=== PATIENT | female | born 1945 | race African-American/Black ===

== ENCOUNTER 2017-04-14 13:46 | Inpatient (IN) | payer OTHER, MEDICARE ==
[~2017-04-14] VITALS: Ht 167.6 cm; Wt 128.5 kg
[~2017-04-14 13:46] MED LIST: ALLO100T PO; BETH25 PO; BUME1TAB PO; COUM2TAB PO; GLIP5TAB8 PO; RANI150T PO; TOPR100T PO; ZITH250T PO; ZOCO40TA PO
[2017-04-14 13:51] VITALS: BP 170/72; PULSE 45; RESP 20; TEMP 97.4; O2SAT 98
--- NOTE | 2017-04-14 14:03 | PD ---
Physical Exam Time Seen by Provider: 14:01 Narrative 71[address] sent by Dr[address] Cantrell for pleural effusion seen on chest x-ray, SOB, chest congestion, severe bradycardia. Symptoms for a few days. Steven chest pain. Hx of afib. Patient seen in triage. VS reviewed. Patient awaiting bed placement. Data Data Last Documented VS Vital Signs Date Time Temp Pulse Resp B/P Pulse Ox O2 Delivery O2 Flow Rate FiO2 04/14/17 13:51 97.4 45 20 170/72 98 MDM Supervised Visit with CHARLIE: Linda Burns Apr 14, 2017 14:03
--- NOTE | 2017-04-14 15:16 | RADRPT ---
EXAM DATE/TIME: 04/14/2017 14:28 [facility] COMPARISON: CHEST PA & LAT, August 29, 2016, 8:03. INDICATIONS : Shortness of breath. MEDICAL HISTORY : Congestive heart failure. Stage four renal failure. SURGICAL HISTORY : Mitral valve replacement. ENCOUNTER: Initial ACUITY: 1 day PAIN SCORE: 0/10 LOCATION: chest FINDINGS: The lungs are clear. The heart is minimally enlarged. The pulmonary vascularity is normal. There is n o evidence for infiltrate or failure. Sternal wires and previous bypass are noted. The portion of the bony skeleton visualized is unremarkable. CONCLUSION: Compensated cardiomegaly otherwise negative Claus Kimble MD FACR on April 14, 2017 at 15:14 Board Certified Radiologist. This report was verified electronically.
--- NOTE | 2017-04-14 15:59 | PD ---
HPI Chief Complaint: Respiratory Symptoms Time Seen by Provider: 15:58 Travel History International Travel<30 days: No Contact w/Intl Traveler<30days: No Traveled to known affect area: No History of Present Illness HPI 71-year-old female came to the emergency room sent by her primary care for pleural effusion and shortness of breath. Patient says that she has been short of breath for past 1 week. There was a chest x-ray done 3 days ago which showed small pleural effusion. Today at the primary care's office it was noticed that her heart rate was in the 40s. She was sent here for evaluation and admission. Patient denies of any chest pain. She is a difficult historian and not very forthcoming with her history. Upon asking she says it's all their in my record. PFSH Past Medical History Narrative Medical List of her past medical, surgical, social and family history is reviewed from the nursing note. Hx Anticoagulant Therapy: Yes (COUMADIN) Arthritis: No Asthma: No Autoimmune Disease: No Anxiety: No Depression: No Heart Rhythm Problems: Yes (MITRAL VALVE PROLAPSE ) Cancer: No Cardiovascular Problems: Yes High Cholesterol: Yes Chemotherapy: No Chest Pain: No Congestive Heart Failure: No COPD: No Cerebrovascular Accident: Yes Diabetes: Yes (Type 2) Diminished Hearing: No Endocrine: Yes (Pituitary tumor) Gastrointestinal Disorders: No GERD: No Gout: Yes Genitourinary: Yes (Prolapsed bladder) Hiatal Hernia: No Hypertension: Yes Immune Disorder: No Implanted Vascular Access Dvce: Yes Kidney Stones: No Musculoskeletal: Yes Neurologic: Yes Psychiatric: No Reproductive: No Respiratory: Yes Immunizations Current: No Migraines: No Radiation Therapy: No Renal Failure: Yes Seizures: No Sleep Apnea: No Thyroid Disease: Yes (PARATHYROIDECTOMY TUMOR REMOVED ) Ulcer: No Menopausal: Yes Past Surgical History Abdominal Surgery: Yes (CHOLECYSTECTOMY) AICD: No Arteriovenous Shunt: No Cardiac Surgery: Yes (MVR) Cholecystectomy: Yes Gynecologic Surgery: Yes (HYSTERECTOMY) Hysterectomy: Yes Insulin Pump: No Joint Replacement: Yes (BL hips) Oral Surgery: Yes (Parathyroidectomy) Pacemaker: No Thoracic Surgery: Yes ((R) breast bx) Other Surgery: Yes Social History Alcohol Use: No Tobacco Use: No Substance Use: No Allergies-Medications (Allergen,Severity, Reaction): Coded Allergies: Gentamicin (Unverified Allergy, Severe, 04/14/17) [place] (Unverified Allergy, Severe, RASH, 04/14/17) PT. DENIES Comments List of allergies reviewed from the nursing note. Reported Meds & Prescriptions Reported Meds & Active Scripts Active Urecholine (Bethanechol Chloride) 25 Mg Tab 12.5 Mg PO ACHS Reported Miralax Powder (Polyethylene Glycol 3350 Powder) 17 Gm Powd 17 Gm PO DAILY Mix and dissolve one measuring cap-ful (17 grams) in water or juice. Gabapentin 100 Mg Cap 100 Mg PO TID Lisinopril 2.5 Mg Tab 2.5 Mg PO DAILY Amoxicillin 250 Mg Cap 250 Mg PO Q12HR Coumadin (Warfarin) 3 Mg Tab 3 Mg PO DAILY@1600 Bumetanide 2 Mg Tab 2 Mg PO BID Glipizide 5 Mg Tab 5 Mg PO DAILY Take 30 minutes before a meal Zocor (Simvastatin) 40 Mg Tab 40 Mg PO HS Allopurinol 100 Mg Tab 100 Mg PO DAILY Narrative Medication List of her home medications reviewed from the nursing note. Review of Systems Except as stated in HPI: all other systems reviewed are Neg Physical Exam Narrative GENERAL: Awake, alert, morbidly obese, moderate distress SKIN: Focused skin assessment warm/dry. HEAD: Atraumatic. Normocephalic. EYES: Pupils equal and round. No scleral icterus. No injection or drainage. ENT: No nasal bleeding or discharge. Mucous membranes pink and moist. NECK: Trachea midline. No JVD. CARDIOVASCULAR: Regular rate and rhythm. No murmur appreciated. RESPIRATORY: No accessory muscle use. Coarse air entry on bilateral bases GASTROINTESTINAL: Abdomen soft, non-tender, nondistended. Hepatic and splenic margins not palpable. MUSCULOSKELETAL: No obvious deformities. No clubbing. No cyanosis. 2+ pedal edema bilaterally. NEUROLOGICAL: Awake and alert. No obvious cranial nerve deficits. Motor grossly within normal limits. Normal speech. PSYCHIATRIC: Appropriate mood and affect; insight and judgment normal. Data Data Last Documented VS Vital Signs Date Time Temp Pulse Resp B/P Pulse Ox O2 Delivery O2 Flow Rate FiO2 04/14/17 19:08 48 16 146/67 100 Nasal Cannula 2 04/14/17 13:51 97.4 Orders Electrocardiogram (04/14/17 ) Chest, Pa & Lat (04/14/17 14:05) Basic Metabolic Panel (Bmp) (04/14/17 16:16) B-Type Natriuretic Peptide (04/14/17 16:16) Ckmb (Isoenzyme) Profile (04/14/17 16:16) Complete Blood Count With Diff (04/14/17 16:16) Magnesium (Mg) (04/14/17 16:16) Prothrombin Time / Inr (Pt) (04/14/17 16:16) Act Partial Throm Time (Ptt) (04/14/17 16:16) Troponin I (04/14/17 16:16) Ecg Monitoring (04/14/17 16:16) Bilateral Bp Monitoring (04/14/17 16:16) Iv Access Insert/Monitor (04/14/17 16:16) Oximetry (04/14/17 16:16) Oxygen Administration (04/14/17 16:16) Sodium Chloride 0.9% Flush (Ns Flush) (04/14/17 16:30) Furosemide Inj (Lasix Inj) (04/14/17 16:30) Vascular Access Team Consult/P PRN (04/14/17 16:21) Vascular Poc Ultrasound (04/14/17 ) CKMB (04/14/17 17:00) CKMB% (04/14/17 17:00) Admit Order (Ed Use Only) (04/14/17 20:43) Labs Laboratory Tests Test 04/14/17 04/14/17 04/14/17 17:00 17:15 19:22 Sodium Level 137 MEQ/L Potassium Level 5.1 MEQ/L Chloride Level 99 MEQ/L Carbon Dioxide Level 29.4 MEQ/L Anion Gap 9 MEQ/L Blood Urea Nitrogen 35 MG/DL Creatinine 2.25 MG/DL Estimat Glomerular Filtration 26 ML/MIN Rate Random Glucose 83 MG/DL Calcium Level 9.0 MG/DL Magnesium Level 2.1 MG/DL Total Creatine Kinase 336 U/L Creatine Kinase MB 1.6 NG/ML Creatine Kinase MB % 0.5 % Troponin I 0.04 NG/ML B-Type Natriuretic Peptide 1234 PG/ML Prothrombin Time 19.6 SEC Prothromb Time International 1.7 RATIO Ratio Activated Partial 37.8 SEC Thromboplast Time White Blood Count 5.8 TH/MM3 Red Blood Count 3.75 MIL/MM3 Hemoglobin 10.0 GM/DL Hematocrit 31.6 % Mean Corpuscular Volume 84.3 FL Mean Corpuscular Hemoglobin 26.6 PG Mean Corpuscular Hemoglobin 31.6 % Concent Red Cell Distribution Width 19.9 % Platelet Count 126 TH/MM3 Mean Platelet Volume 9.8 FL Neutrophils (%) (Auto) 69.6 % Lymphocytes (%) (Auto) 13.5 % Monocytes (%) (Auto) 11.9 % Eosinophils (%) (Auto) 4.2 % Basophils (%) (Auto) 0.8 % Neutrophils # (Auto) 4.0 TH/MM3 Lymphocytes # (Auto) 0.8 TH/MM3 Monocytes # (Auto) 0.7 TH/MM3 Eosinophils # (Auto) 0.2 TH/MM3 Basophils # (Auto) 0.0 TH/MM3 CBC Comment DIFF FINAL Differential Comment MDM Medical Decision Making Medical Screen Exam Complete: Yes Emergency Medical Condition: Yes Medical Record Reviewed: Yes Interpretation(s) Twelve-lead EKG was reviewed by me. Atrial fibrillation, bradycardia. Heart rate of 48 bpm Differential Diagnosis Congestive heart failure, medication related bradycardia, electrolyte abnormality, ACS Narrative Course 6:28 PM awaiting for the blood test results. As per the nurse she was a very difficult stick and the blood test to be recollected multiple times. Currently I have the coags and BNP back. Her BNP is elevated. I've given her 40 mg of IV Lasix. Awaiting for the rest of the blood test results. 7:01 PM awaiting for the CBC. Patient will need to be admitted. I signed the case over to the oncoming ER physician. Procedures EKG Prior to Arrival: Yes Tomas Vallejo MD Apr 14, 2017 15:59
[2017-04-14] MEDS ORDERED: SODIUM CHLORIDE 0.9% FLUSH 10 ML FLUSH IVF PRN (16:30)
[2017-04-14] MEDS ORDERED: FUROSEMIDE 40 MG/4 ML VIAL IV PUSH ONE (16:30)
[2017-04-14] MEDS ORDERED: AMOX250C3 PO (17:22)
[2017-04-14] MEDS ORDERED: LISI2.5T3 PO (17:22)
[2017-04-14] MEDS ORDERED: BUME2TAB PO (17:22)
[2017-04-14] MEDS ORDERED: COUM3TAB PO (17:22)
[2017-04-14] MEDS ORDERED: MIRA3350 PO (17:22)
[2017-04-14] MEDS ORDERED: GABA100C4 PO (17:22)
[2017-04-14 17:30] VITALS: BP 168/74; PULSE 49; RESP 24; O2SAT 98
[2017-04-14 17:50] LABS: APTT (PATIENT) 37.8 SEC (24.3-30.1); INTERNATIONAL NORMALIZED RATIO 1.7 RATIO; PROTHROMBIN TIME - PATIENT 19.6 SEC (9.8-11.6)
[2017-04-14 18:30] LABS: BICARBONATE 29.4 MEQ/L (21.0-32.0); MAGNESIUM 2.1 MG/DL (1.5-2.5); POTASSIUM 5.1 MEQ/L (3.5-5.1)
[2017-04-14 18:43] LABS: CKMB 1.6 NG/ML (0.5-3.6)
[2017-04-14 19:08] VITALS: BP 146/67; PULSE 48; RESP 16; O2SAT 100
[2017-04-14 19:55] LABS: BASOPHIL % 0.8 % (0.0-2.0); EOSINOPHIL # 0.2 TH/MM3 (0-0.4); EOSINOPHIL % 4.2 % (0.0-4.0); HEMATOCRIT 31.6 % (35.0-46.0); HEMO FLAGS DIFF FINAL; LYMPH % 13.5 % (9.0-44.0); LYMPHOCYTE # 0.8 TH/MM3 (1.0-4.8); MEAN CELL VOLUME 84.3 FL (80.0-100.0); MEAN CORPUSCULAR HEMOGLOBIN 26.6 PG (27.0-34.0); MEAN CORPUSCULAR HGB CONC 31.6 % (32.0-36.0); MONO % 11.9 % (0.0-8.0); NEUT % 69.6 % (16.0-70.0); PLATELET COUNT 126 TH/MM3 (150-450); RED BLOOD COUNT 3.75 MIL/MM3 (4.00-5.30); RED CELL DISTRIBUTION WIDTH 19.9 % (11.6-17.2); WHITE BLOOD COUNT 5.8 TH/MM3 (4.0-11.0)
[2017-04-14] MEDS ORDERED: SODIUM CHLORIDE 0.9% FLUSH 10 ML FLUSH IV FLUSH PRN (20:45)
[2017-04-14] MEDS ORDERED: NALOXONE HCL 0.4 MG/ML AMP IV PRN (20:45)
[2017-04-14] MEDS: SODIUM CHLORIDE 0.9% FLUSH 10 ML FLUSH IV FLUSH SCH (21:00)
[2017-04-14 22:26] VITALS: BP 156/68; PULSE 52; RESP 18; O2SAT 98
--- NOTE | 2017-04-14 23:27 | PD ---
Data Data Last Documented VS Vital Signs Date Time Temp Pulse Resp B/P Pulse Ox O2 Delivery O2 Flow Rate FiO2 04/14/17 19:08 48 16 146/67 100 Nasal Cannula 2 04/14/17 13:51 97.4 Orders Electrocardiogram (04/14/17 ) Chest, Pa & Lat (04/14/17 14:05) Basic Metabolic Panel (Bmp) (04/14/17 16:16) B-Type Natriuretic Peptide (04/14/17 16:16) Ckmb (Isoenzyme) Profile (04/14/17 16:16) Complete Blood Count With Diff (04/14/17 16:16) Magnesium (Mg) (04/14/17 16:16) Prothrombin Time / Inr (Pt) (04/14/17 16:16) Act Partial Throm Time (Ptt) (04/14/17 16:16) Troponin I (04/14/17 16:16) Ecg Monitoring (04/14/17 16:16) Bilateral Bp Monitoring (04/14/17 16:16) Iv Access Insert/Monitor (04/14/17 16:16) Oximetry (04/14/17 16:16) Oxygen Administration (04/14/17 16:16) Sodium Chloride 0.9% Flush (Ns Flush) (04/14/17 16:30) Furosemide Inj (Lasix Inj) (04/14/17 16:30) Vascular Access Team Consult/P PRN (04/14/17 16:21) Vascular Poc Ultrasound (04/14/17 ) CKMB (04/14/17 17:00) CKMB% (04/14/17 17:00) Admit Order (Ed Use Only) (04/14/17 20:43) Labs Laboratory Tests Test 04/14/17 04/14/17 04/14/17 17:00 17:15 19:22 Sodium Level 137 MEQ/L Potassium Level 5.1 MEQ/L Chloride Level 99 MEQ/L Carbon Dioxide Level 29.4 MEQ/L Anion Gap 9 MEQ/L Blood Urea Nitrogen 35 MG/DL Creatinine 2.25 MG/DL Estimat Glomerular Filtration 26 ML/MIN Rate Random Glucose 83 MG/DL Calcium Level 9.0 MG/DL Magnesium Level 2.1 MG/DL Total Creatine Kinase 336 U/L Creatine Kinase MB 1.6 NG/ML Creatine Kinase MB % 0.5 % Troponin I 0.04 NG/ML B-Type Natriuretic Peptide 1234 PG/ML Prothrombin Time 19.6 SEC Prothromb Time International 1.7 RATIO Ratio Activated Partial 37.8 SEC Thromboplast Time White Blood Count 5.8 TH/MM3 Red Blood Count 3.75 MIL/MM3 Hemoglobin 10.0 GM/DL Hematocrit 31.6 % Mean Corpuscular Volume 84.3 FL Mean Corpuscular Hemoglobin 26.6 PG Mean Corpuscular Hemoglobin 31.6 % Concent Red Cell Distribution Width 19.9 % Platelet Count 126 TH/MM3 Mean Platelet Volume 9.8 FL Neutrophils (%) (Auto) 69.6 % Lymphocytes (%) (Auto) 13.5 % Monocytes (%) (Auto) 11.9 % Eosinophils (%) (Auto) 4.2 % Basophils (%) (Auto) 0.8 % Neutrophils # (Auto) 4.0 TH/MM3 Lymphocytes # (Auto) 0.8 TH/MM3 Monocytes # (Auto) 0.7 TH/MM3 Eosinophils # (Auto) 0.2 TH/MM3 Basophils # (Auto) 0.0 TH/MM3 CBC Comment DIFF FINAL Differential Comment MDM Medical Record Reviewed: Yes Supervised Visit with CHARLIE: No Narrative Course Please refer to the outgoing provider note. CBC & BMP Diagram 04/14/17 17:00 04/14/17 19:22 BNP 1234 Troponin 0.04 INR 1.7 Last 24 hours Impressions Chest X-Ray 04/14/17 1405 Signed Impressions: Service Date/Time: Friday, April 14, 2017 14:28 - CONCLUSION: Compensated cardiomegaly otherwise negative Claus Kimble MD FACR The patient will be admitted for management of CHF exacerbation. EKG: Afib rate [address] Benson[address] Dr Eran Red has reportedly retired. Of note the patient reports compliance with dietary guidelines and Lasix. She reports abdominal wall cellulitis and she is on amoxicillin and reports general improvement since starting the antibiotic. Case discussed with Dr Aguilar. Diagnosis Primary Impression: CHF (congestive heart failure) Qualified Code: I50.9 - Congestive heart failure, unspecified congestive heart failure chronicity, unspecified congestive heart failure type Admitting Information Admitting Physician Requests: Admit Patient Instructions: General Instructions, Moderate Sedation (ED) Departure Forms: Tests/Procedures Jb De La Rosa MD Apr 14, 2017 23:27
--- NOTE | 2017-04-14 23:52 | HHI.HP ---
[facility] Jarett Benson Admission Diagnosis CHF Exacerbation Diagnoses: Chief Complaint: sob, and lower extremity edema Travel History International Travel<30 Days: No Contact w/Intl Traveler <30 Da: No Traveled to Known Affected Are: No History of Present Illness Written by RONALDO Terrell acting as scribe for [Jeff] on 04/15/17 at 00: 50. 71 y/o female with a medical history of CHF, HTN, DM, afib, MVR([facility]), pituitary tumor and CKD stage 4 presented to the ED with complaints of increased sob and lower extremity edema . Patient states she went to her PCP today because she has a routine appointment. But she was also having sob, and lower extremity edema for past few days. At the office, her blood pressure was low and according to the notes, she was found to be in A. fib with RVR. Her PCP therefore sent her to the hospital. She was seen at her italian lecturer office on 04/12 and a chest xray was completed and it showed bilateral pleural effusions. She states over the last week she has had increasing sob and lower extremity edema. She has cellulitis in her abdomen and has been on antibiotics with amoxicillin.. She is complaining of diarrhea, 2-3 times a day, foul smelling. Denies any chest pain, fever, chills, dysuria. Apart from the above, patient denies any chest pain/palpitations/syncopal episodes. She denies nausea/vomiting. Door Installer: Dr. Mireles Single Spindle Screw Machine Operator: Dr. Interiano Review of Systems Except as stated in HPI: all other systems reviewed are Neg Past Family Social History Past Medical History HTN DM afib Mitral valve prolapsewith replacement metallic. Chronic anticoagulation on Coumadin CKD stage 4 CHF Pituitary tumor Past Surgical History MVR([facility]) Cholecystectomy parathyroidectomy Hysterectomy Bilateral hip replacement Reported Medications Reported Meds & Active Scripts Active Urecholine (Bethanechol Chloride) 25 Mg Tab 12.5 Mg PO ACHS Reported Miralax Powder (Polyethylene Glycol 3350 Powder) 17 Gm Powd 17 Gm PO DAILY Mix and dissolve one measuring cap-ful (17 grams) in water or juice. Gabapentin 100 Mg Cap 100 Mg PO TID Lisinopril 2.5 Mg Tab 2.5 Mg PO DAILY Amoxicillin 250 Mg Cap 250 Mg PO Q12HR Coumadin (Warfarin) 3 Mg Tab 3 Mg PO DAILY@1600 Bumetanide 2 Mg Tab 2 Mg PO BID Glipizide 5 Mg Tab 5 Mg PO DAILY Take 30 minutes before a meal Zocor (Simvastatin) 40 Mg Tab 40 Mg PO HS Allopurinol 100 Mg Tab 100 Mg PO DAILY Allergies: Coded Allergies: Gentamicin (Unverified Allergy, Severe, 04/14/17) [place] (Unverified Allergy, Severe, RASH, 04/14/17) PT. DENIES Active Ordered Medications Current Medications Medications (Trade) Dose Ordered Sig/Mar Route Start Time Stop Time Status Last Admin (NS Flush) 2 ml UNSCH PRN IV FLUSH 04/14/17 20:45 (NS Flush) 2 ml BID IV FLUSH 04/14/17 21:00 04/14/17 21:00 (Narcan Inj) 0.4 mg UNSCH PRN IV 04/14/17 20:45 (Lasix Inj) 40 mg BID@09,18 IV PUSH 04/15/17 09:00 Family History Mom: CVA, DM Dad: Cirrhosis Aunt: breast cancer Social History Tobacco use: Quit 1994 Alcohol use: Denies Illicit drug use: Denies Physical Exam Vital Signs Vital Signs Date Time Temp Pulse Resp B/P Pulse Ox O2 Delivery O2 Flow Rate FiO2 04/14/17 22:26 52 18 156/68 98 Nasal Cannula 2 04/14/17 19:08 48 16 146/67 100 Nasal Cannula 2 04/14/17 17:30 49 24 168/74 98 Nasal Cannula 2 04/14/17 16:23 98 Nasal Cannula 2 04/14/17 16:10 Nasal Cannula 2 04/14/17 13:51 97.4 45 20 170/72 98 Physical Exam GENERAL: This is a well-nourished, obese patient, in no apparent distress. Seems to be short of breath on conversation. SKIN: No rashes, ecchymoses or lesions. Cool and dry. HEAD: Atraumatic. Normocephalic. No temporal or scalp tenderness. EYES: Pupils equal round and reactive. Extraocular motions intact. ENT: Nose without bleeding, purulent drainage or septal hematoma. Airway patent. NECK: Trachea midline. No JVD CARDIOVASCULAR: Regular rate and rhythm without murmurs, gallops, or rubs. RESPIRATORY: Clear to auscultation. Breath sounds equal bilaterally. No wheezes , rales, or rhonchi. GASTROINTESTINAL: Abdomen soft, non-tender, nondistended. Slight redness to lower umbilical area, no drainage. No guarding. MUSCULOSKELETAL: Bilateral lower extremity edema. No joint tenderness, effusion. No calf tenderness. Bilateral lower extremity mild 1+ pitting edema NEUROLOGICAL: Awake and alert. Motor and sensory grossly within normal limits. Normal speech. Laboratory Laboratory Tests Test 04/14/17 04/14/17 04/14/17 17:00 17:15 19:22 Sodium Level 137 Potassium Level 5.1 Chloride Level 99 Carbon Dioxide Level 29.4 Anion Gap 9 Blood Urea Nitrogen 35 Creatinine 2.25 Estimat Glomerular Filtration 26 Rate Random Glucose 83 Calcium Level 9.0 Magnesium Level 2.1 Total Creatine Kinase 336 Creatine Kinase MB 1.6 Creatine Kinase MB % 0.5 Troponin I 0.04 B-Type Natriuretic Peptide 1234 Prothrombin Time 19.6 Prothromb Time International 1.7 Ratio Activated Partial 37.8 Thromboplast Time White Blood Count 5.8 Red Blood Count 3.75 Hemoglobin 10.0 Hematocrit 31.6 Mean Corpuscular Volume 84.3 Mean Corpuscular Hemoglobin 26.6 Mean Corpuscular Hemoglobin 31.6 Concent Red Cell Distribution Width 19.9 Platelet Count 126 Mean Platelet Volume 9.8 Neutrophils (%) (Auto) 69.6 Lymphocytes (%) (Auto) 13.5 Monocytes (%) (Auto) 11.9 Eosinophils (%) (Auto) 4.2 Basophils (%) (Auto) 0.8 Neutrophils # (Auto) 4.0 Lymphocytes # (Auto) 0.8 Monocytes # (Auto) 0.7 Eosinophils # (Auto) 0.2 Basophils # (Auto) 0.0 CBC Comment DIFF FINAL Differential Comment Result Diagram: 04/14/17192104/14/17 1700 Imaging Last Impressions Chest X-Ray 04/14/17 1405 Signed Impressions: Service Date/Time: Friday, April 14, 2017 14:28 - CONCLUSION: Compensated cardiomegaly otherwise negative Claus Kimble MD FACR Assessment and Plan Problem List: (1) CHF exacerbation ICD Code: I50.9 Status: Acute (2) Chronic kidney disease ICD Code: N18.9 Status: Chronic (3) Diabetes ICD Code: E11.9 Status: Chronic (4) Hypertension ICD Code: I10 Status: Chronic (5) Diarrhea ICD Code: R19.7 Status: Acute Assessment and Plan 71 y/o female with a medical history of CHF, HTN, DM, afib, MVR([facility]), pituitary tumor and CKD stage 4 presented to the ED with complaints of increased sob and lower extremity edema . CHF exacerbationmultifactorial. Patient reports that she was switched from Lasix to Bumex recently as well. She also has been having CK D stage IV. Not on dialysis yet. BNP 1234, last echo 09/28 showed EF 60-65% Chest xray reviewed and shows Compensated cardiomegaly otherwise negative -Lasix IV BID -Consult cardiology, for recommendations, known to Dr. Mireles. However suspects that her worsening dyspnea is mostly related to her renal function. Would consult her italian lecturer for possibility of need of hemodialysis -2d Echo ordered CKD, chronic, stage 4, creatine 2.5 which is baseline -Consult Nephrology, for recommendations, known to Dr. Interiano -Avoid nephrotoxins Diarrhea, acute, with recent antibiotic use -Check c diff HTN, chronic, currently stable -Reorder home medication lisinopril DM, chronic -Accu checks AC/HS with SSI Metallic mitral valve replacementon chronic anticoagulation with Coumadin. Currently subtherapeutic INR. Will start patient on overlap with Coumadin/heparin drip DVT prophylaxis: Coumadin This note was transcribed by yoshi [Beena Everett]. I, Dr. Denisse Aguilar personally performed the history, physical exam, and medical decision making; and confirmed the accuracy of the information in the transcribed note. Authenticated by Dr. Denisse Aguilar on 04/15/17 at 00:50. This is a full inpatient admission. Inpatient certification has been written already. Discussed Condition With Patient Problem Qualifiers (1) CHF exacerbation: Qualified Code: I50.9 - Acute on chronic congestive heart failure, unspecified congestive heart failure type (2) Chronic kidney disease: Qualified Code: N18.4 - Stage 4 chronic kidney disease (3) Diabetes: Qualified Code: E11.9 - Type 2 diabetes mellitus without complication, without long-term current use of insulin (4) Diarrhea: Qualified Code: A09 - Diarrhea of presumed infectious origin Beena Everett Apr 14, 2017 23:52 Denisse Aguilar MD Apr 15, 2017 02:27
[2017-04-15] VITALS (7 sets, daily range): BP systolic 131–158; BP diastolic 60–71; PULSE 49–66; RESP 17–21; TEMP 95.5–97.9; O2SAT 93–100
[2017-04-15 00:44] LABS: CKMB 1.8 NG/ML (0.5-3.6)
[2017-04-15] MEDS ORDERED: DEXTROSE 50% IN WATER 50 ML VIAL(D50) IV PRN (02:00)
[2017-04-15] MEDS ORDERED: GLUCAGON 1 MG/ML VIAL OTHER PRN (02:00)
[2017-04-15] MEDS: WARFARIN SOD 3 MG TAB PO SCH ×2 (02:29→16:00)
[2017-04-15] MEDS ORDERED: WARFARIN SOD 1 MG TAB PO ONE ×2 (02:30→02:45)
[2017-04-15] MEDS ORDERED: WARFARIN SOD 10 MG TAB PO ONE (02:45)
[2017-04-15] MEDS: HEPARIN-D5W INJ 250 ML IV SCH ×2 (04:29→21:06)
[2017-04-15] MEDS: INSULIN ASPART SUPPLEMENTAL SCALE SQ SCH ×4 (07:00→21:00)
[2017-04-15 07:56] LABS: AUTOMATED NEUTROPHIL # 3.7 TH/MM3 (1.8-7.7); BASOPHIL % 0.6 % (0.0-2.0); EOSINOPHIL # 0.3 TH/MM3 (0-0.4); EOSINOPHIL % 5.2 % (0.0-4.0); HEMATOCRIT 29.3 % (35.0-46.0); HEMO FLAGS DIFF FINAL; LYMPH % 13.8 % (9.0-44.0); LYMPHOCYTE # 0.7 TH/MM3 (1.0-4.8); MEAN CELL VOLUME 84.5 FL (80.0-100.0); MEAN CORPUSCULAR HEMOGLOBIN 26.8 PG (27.0-34.0); MEAN CORPUSCULAR HGB CONC 31.7 % (32.0-36.0); MONO % 11.5 % (0.0-8.0); NEUT % 68.9 % (16.0-70.0); PLATELET COUNT 119 TH/MM3 (150-450); RED BLOOD COUNT 3.47 MIL/MM3 (4.00-5.30); RED CELL DISTRIBUTION WIDTH 20.1 % (11.6-17.2); WHITE BLOOD COUNT 5.4 TH/MM3 (4.0-11.0)
[2017-04-15 08:29] LABS: BICARBONATE 31.2 MEQ/L (21.0-32.0); POTASSIUM 3.2 MEQ/L (3.5-5.1)
[2017-04-15 08:45] LABS: CKMB 1.7 NG/ML (0.5-3.6)
[2017-04-15] MEDS: FUROSEMIDE 40 MG/4 ML VIAL IV PUSH SCH ×2 (09:09→18:31)
[2017-04-15] MEDS: ALLOPURINOL 100 MG TAB PO SCH (09:09)
[2017-04-15] MEDS: BETHANECHOL CHL 25 MG TAB PO SCH ×4 (09:10→21:00)
[2017-04-15] MEDS: LISINOPRIL 5 MG TAB PO SCH (09:10)
[2017-04-15] MEDS: GABAPENTIN 100 MG CAP PO SCH ×3 (09:10→18:30)
[2017-04-15] MEDS: SODIUM CHLORIDE 0.9% FLUSH 10 ML FLUSH IV FLUSH SCH ×2 (09:14→21:00)
--- NOTE | 2017-04-15 10:53 | PD.CONS ---
HPI Consult Requested By Primary Care Physician Jarett Benson History of Present Illness 71 y/o female with a medical history of CHF, HTN, DM, afib, mechanical Mitral Valve Replacent, pituitary tumor and CKD stage 4 sent by PCP to ED with AFIB with RVR and complaints of increased sob and lower extremity edema for a couple of days. Denies any chest pain, fever, chills, dysuria. Review of Systems Consitutional: DENIES: Fatigue, Fever, Chills, Weight gain, Weight loss Eyes: DENIES: Amaurosis Fugax, Change in vision Respiratory: COMPLAINS OF: Shortness of breath Cardiovascular: DENIES: See HPI, Chest pain, Palpitations, Syncope, Tachycardia Gastrointestinal: DENIES: Nausea, Vomiting, Change in bowel habits, Reflux, Bloody stools, Melena Genitourinary: DENIES: Urinary incontinence, Difficulty voiding Integumentary: DENIES: Rash Neurologic: DENIES: Tingling or numbness, Memory problems, Poor Balance, Stroke symptoms Musculoskeletal: DENIES: Joint pain, Muscle pain, Limited range of motion, Back pain Psychiatric: DENIES: Anxiety, Depression, Sleep disturbances Hematologic: DENIES: Bruising tendencies, Bleeding tendencies Endocrine: COMPLAINS OF: Weight gain Past Family Social History Allergies: Coded Allergies: Gentamicin (Unverified Allergy, Severe, 04/14/17) [place] (Unverified Allergy, Severe, RASH, 04/14/17) PT. DENIES Past Medical History HTN DM afib Mitral valve prolapsewith replacement metallic. Chronic anticoagulation on Coumadin CKD stage 4 CHF Pituitary tumor Past Surgical History MVR Cholecystectomy parathyroidectomy Hysterectomy Bilateral hip replacement Reported Medications Reported Meds & Active Scripts Active Urecholine (Bethanechol Chloride) 25 Mg Tab 12.5 Mg PO ACHS Reported Miralax Powder (Polyethylene Glycol 3350 Powder) 17 Gm Powd 17 Gm PO DAILY Mix and dissolve one measuring cap-ful (17 grams) in water or juice. Gabapentin 100 Mg Cap 100 Mg PO TID Lisinopril 2.5 Mg Tab 2.5 Mg PO DAILY Amoxicillin 250 Mg Cap 250 Mg PO Q12HR Coumadin (Warfarin) 3 Mg Tab 3 Mg PO DAILY@1600 Bumetanide 2 Mg Tab 2 Mg PO BID Glipizide 5 Mg Tab 5 Mg PO DAILY Take 30 minutes before a meal Zocor (Simvastatin) 40 Mg Tab 40 Mg PO HS Allopurinol 100 Mg Tab 100 Mg PO DAILY Active Ordered Medications Current Medications Medications (Trade) Dose Ordered Sig/Mar Route Start Time Stop Time Status Last Admin (NS Flush) 2 ml UNSCH PRN IV FLUSH 04/14/17 20:45 (NS Flush) 2 ml BID IV FLUSH 04/14/17 21:00 04/15/17 09:14 (Narcan Inj) 0.4 mg UNSCH PRN IV 04/14/17 20:45 (Lasix Inj) 40 mg BID@09,18 IV PUSH 04/15/17 09:00 04/15/17 09:09 (Coumadin) 3 mg DAILY@1600 PO 04/15/17 01:00 04/15/17 02:29 (Coumadin Booklet) 1 ONCE ONCE OTHER 04/15/17 16:00 04/15/17 16:01 (Zyloprim) 100 mg DAILY PO 04/15/17 09:00 04/15/17 09:09 (Urecholine) 12.5 mg ACHS PO 04/15/17 07:00 04/15/17 09:10 (Neurontin) 100 mg TID PO 04/15/17 09:00 04/15/17 09:10 (Prinivil) 2.5 mg DAILY PO 04/15/17 09:00 04/15/17 09:10 (Pravachol) 80 mg HS PO 04/15/17 21:00 (D50w (Vial) Inj) 50 ml UNSCH PRN IV 04/15/17 02:00 (Glucagon Inj) 1 mg UNSCH PRN OTHER 04/15/17 02:00 Amoxicillin 250 mg 250 mg Q12HR PO 04/15/17 09:00 (Heparin-D5W Inj) 250 ml @ 0 mls/hr TITRATE IV 04/15/17 02:30 04/15/17 04:29 Physical Exam Vital Signs Vital Signs Date Time Temp Pulse Resp B/P Pulse Ox O2 Delivery O2 Flow Rate FiO2 04/15/17 08:00 96.4 53 19 131/67 93 04/15/17 04:25 95.5 49 21 153/60 94 04/15/17 00:20 96.0 51 20 154/67 94 04/14/17 22:26 52 18 156/68 98 Nasal Cannula 2 04/14/17 19:08 48 16 146/67 100 Nasal Cannula 2 04/14/17 17:30 49 24 168/74 98 Nasal Cannula 2 04/14/17 16:23 98 Nasal Cannula 2 04/14/17 16:10 Nasal Cannula 2 04/14/17 13:51 97.4 45 20 170/72 98 Physical Exam GENERAL: Well-nourished, well-developed patient. SKIN: Warm and dry. HEAD: Normocephalic. EYES: No scleral icterus. No injection or drainage. NECK: Supple, trachea midline. No JVD or lymphadenopathy. CARDIOVASCULAR: Irr irr metallic murmur, NO gallops, or rubs. RESPIRATORY: Breath sounds equal bilaterally. No accessory muscle use. GASTROINTESTINAL: Abdomen soft, non-tender, nondistended. EXTREMITIES: No cyanosis, or +edema. NEUROLOGICAL: Awake, alert, and oriented x 3. Non-focal. Laboratory Laboratory Tests Test 04/14/17 04/14/17 04/14/17 04/15/17 17:00 17:15 19:22 00:01 Sodium Level 137 Potassium Level 5.1 Chloride Level 99 Carbon Dioxide Level 29.4 Anion Gap 9 Blood Urea Nitrogen 35 Creatinine 2.25 Estimat Glomerular Filtration 26 Rate Random Glucose 83 Calcium Level 9.0 Magnesium Level 2.1 Total Creatine Kinase 336 256 Creatine Kinase MB 1.6 1.8 Creatine Kinase MB % 0.5 0.7 Troponin I 0.04 0.05 B-Type Natriuretic Peptide 1234 Prothrombin Time 19.6 Prothromb Time International 1.7 Ratio Activated Partial 37.8 Thromboplast Time White Blood Count 5.8 Red Blood Count 3.75 Hemoglobin 10.0 Hematocrit 31.6 Mean Corpuscular Volume 84.3 Mean Corpuscular Hemoglobin 26.6 Mean Corpuscular Hemoglobin 31.6 Concent Red Cell Distribution Width 19.9 Platelet Count 126 Mean Platelet Volume 9.8 Neutrophils (%) (Auto) 69.6 Lymphocytes (%) (Auto) 13.5 Monocytes (%) (Auto) 11.9 Eosinophils (%) (Auto) 4.2 Basophils (%) (Auto) 0.8 Neutrophils # (Auto) 4.0 Lymphocytes # (Auto) 0.8 Monocytes # (Auto) 0.7 Eosinophils # (Auto) 0.2 Basophils # (Auto) 0.0 CBC Comment DIFF FINAL Differential Comment Test 04/15/17 07:15 White Blood Count 5.4 Red Blood Count 3.47 Hemoglobin 9.3 Hematocrit 29.3 Mean Corpuscular Volume 84.5 Mean Corpuscular Hemoglobin 26.8 Mean Corpuscular Hemoglobin 31.7 Concent Red Cell Distribution Width 20.1 Platelet Count 119 Mean Platelet Volume 9.6 Neutrophils (%) (Auto) 68.9 Lymphocytes (%) (Auto) 13.8 Monocytes (%) (Auto) 11.5 Eosinophils (%) (Auto) 5.2 Basophils (%) (Auto) 0.6 Neutrophils # (Auto) 3.7 Lymphocytes # (Auto) 0.7 Monocytes # (Auto) 0.6 Eosinophils # (Auto) 0.3 Basophils # (Auto) 0.0 CBC Comment DIFF FINAL Differential Comment Sodium Level 139 Potassium Level 3.2 Chloride Level 100 Carbon Dioxide Level 31.2 Anion Gap 8 Blood Urea Nitrogen 32 Creatinine 1.85 Estimat Glomerular Filtration 33 Rate Random Glucose 106 Calcium Level 9.1 Total Creatine Kinase 235 Creatine Kinase MB 1.7 Creatine Kinase MB % 0.7 Troponin I 0.05 Result Diagram: 04/15/17 0715 04/15/17 0715 Imaging Last Impressions Chest X-Ray 04/14/17 1405 Signed Impressions: Service Date/Time: Friday, April 14, 2017 14:28 - CONCLUSION: Compensated cardiomegaly otherwise negative Claus Kimble MD FACR Assessment and Plan Problem List: (1) CHF exacerbation Assessment and Plan: 71 y/o F with acute on chronic diastolic congestive heart failure, severe TR, CKD stage 4 and afib. She remains afebrile and hemodynamically stable. She has been responding well to IV diuresis, nephrology following. Reports feeling better from SOB. Recommendations: Cont IV diuretics Lasix 40 BID Daily weight Low salt diet Cont rate control for Afib Cont OAC goal INR 2.5-3.5 Cont aggressive medical management for CAD F/U with Dr. Mireles/Cardiology upon discharge Thank for the opportunity to take part in the care of this patient (2) Atrial fibrillation (3) Diabetes (4) Diarrhea (5) Hypertension (6) Anemia (7) ARF (acute renal failure) (8) Anticoagulated on Coumadin Problem Qualifiers (1) CHF exacerbation: Qualified Code: I50.9 - Acute on chronic congestive heart failure, unspecified congestive heart failure type (2) Atrial fibrillation: Qualified Code: I48.2 - Chronic atrial fibrillation (3) Diabetes: Qualified Code: E11.9 - Type 2 diabetes mellitus without complication, without long-term current use of insulin (4) Diarrhea: Qualified Code: A09 - Diarrhea of presumed infectious origin Elton Stevenson MD Apr 15, 2017 10:53
[2017-04-15] MEDS ORDERED: POTASSIUM CHLORIDE 20 MEQ CONTROLLED RELEASE TAB PO ONE (11:30)
--- NOTE | 2017-04-15 12:19 | PD.CONS ---
HPI Service Nephrology Consult Requested By Reason for Consult Acute on CKD Primary Care Physician Jarett Benson History of Present Illness This is a 71 y/o AAF patient. She has a hx of DM II, A fib on Coumadin, CKD 4, CHF, hx of MV replacement. She came in for evaluation of A fib with RVR, was at MD's office where she was found to be tachycardic, hypotensive, and had lower extremity edema. We saw her in our clinic on Wednesday, at that time she was reporting lower extremity edema and shortness of breath. We made medication changes including stopping amlodipine, changed lasix to Bumex 2 mg PO BID, and started lisinopril 2.5 mg daily. On arrival here her creatinine was 2.25 that improved to 1.88 today. Earlier this month her creatinine was 1.88, GFR 31. She is on oxygen. Her INR was slightly low at 1.7, she was given extra dose of Coumadin and started on heparin gtt. We were construed for renal management. She is a full code. (Kacie Calderon) Review of Systems Constitutional: COMPLAINS OF: Fatigue Respiratory: COMPLAINS OF: Shortness of breath, DENIES: Sputum production Cardiovascular: COMPLAINS OF: Dyspnea on Exertion, Lower Extremity Edema, DENIES: Chest pain, Palpitations, Syncope Gastrointestinal: DENIES: Abdominal pain (Kacie Calderon) Past Family Social History Allergies: Coded Allergies: Gentamicin (Unverified Allergy, Severe, 04/14/17) [place] (Unverified Allergy, Severe, RASH, 04/14/17) PT. DENIES Past Medical History CKD stage 4, baseline creatinine , GFR 31 from March 2017 HTN DM II afib on Chronic anticoagulation on Coumadin Mitral valve prolapsewith replacement metallic. CHF Pituitary tumor Past Surgical History MVR([facility]) Cholecystectomy parathyroidectomy Hysterectomy Bilateral hip replacement Reported Medications Urecholine (Bethanechol Chloride) 25 Mg Tab 12.5 Mg PO ACHS Miralax Powder (Polyethylene Glycol 3350 Powder) 17 Gm Powd 17 Gm PO DAILY Mix and dissolve one measuring cap-ful (17 grams) in water or juice. Gabapentin 100 Mg Cap 100 Mg PO TID Lisinopril 2.5 Mg Tab 2.5 Mg PO DAILY Amoxicillin 250 Mg Cap 250 Mg PO Q12HR Coumadin (Warfarin) 3 Mg Tab 3 Mg PO DAILY@1600 Bumetanide 2 Mg Tab 2 Mg PO BID Glipizide 5 Mg Tab 5 Mg PO DAILY Take 30 minutes before a meal Zocor (Simvastatin) 40 Mg Tab 40 Mg PO HS Allopurinol 100 Mg Tab 100 Mg PO DAILY Active Ordered Medications Current Medications Medications (Trade) Dose Ordered Sig/Mar Route Start Time Stop Time Status Last Admin (NS Flush) 2 ml UNSCH PRN IV FLUSH 04/14/17 20:45 (NS Flush) 2 ml BID IV FLUSH 04/14/17 21:00 04/15/17 09:14 (Narcan Inj) 0.4 mg UNSCH PRN IV 04/14/17 20:45 (Lasix Inj) 40 mg BID@09,18 IV PUSH 04/15/17 09:00 04/15/17 09:09 (Coumadin) 3 mg DAILY@1600 PO 04/15/17 01:00 04/15/17 02:29 (Coumadin Booklet) 1 ONCE ONCE OTHER 04/15/17 16:00 04/15/17 16:01 (Zyloprim) 100 mg DAILY PO 04/15/17 09:00 04/15/17 09:09 (Urecholine) 12.5 mg ACHS PO 04/15/17 07:00 04/15/17 09:10 (Neurontin) 100 mg TID PO 04/15/17 09:00 04/15/17 09:10 (Prinivil) 2.5 mg DAILY PO 04/15/17 09:00 Hold 04/15/17 09:10 (Pravachol) 80 mg HS PO 04/15/17 21:00 (D50w (Vial) Inj) 50 ml UNSCH PRN IV 04/15/17 02:00 (Glucagon Inj) 1 mg UNSCH PRN OTHER 04/15/17 02:00 Amoxicillin 250 mg 250 mg Q12HR PO 04/15/17 09:00 (Heparin-D5W Inj) 250 ml @ 0 mls/hr TITRATE IV 04/15/17 02:30 04/15/17 04:29 Family History multiple members with DM II Social History , lives alone uses cane no smoking or ETOH full code retired ([employer]) Physical Exam Vital Signs Vital Signs Date Time Temp Pulse Resp B/P Pulse Ox O2 Delivery O2 Flow Rate FiO2 04/15/17 08:00 96.4 53 19 131/67 93 04/15/17 04:25 95.5 49 21 153/60 94 04/15/17 00:20 96.0 51 20 154/67 94 04/14/17 22:26 52 18 156/68 98 Nasal Cannula 2 04/14/17 19:08 48 16 146/67 100 Nasal Cannula 2 04/14/17 17:30 49 24 168/74 98 Nasal Cannula 2 04/14/17 16:23 98 Nasal Cannula 2 04/14/17 16:10 Nasal Cannula 2 04/14/17 13:51 97.4 45 20 170/72 98 Physical Exam GENERAL: Well-nourished, well-developed AAF patient. SKIN: Warm and dry. HEAD: Normocephalic. EYES: No scleral icterus. No injection or drainage. NECK: Supple, trachea midline. No JVD or lymphadenopathy. CARDIOVASCULAR: A fib, rate in 50s, slightly (II/) murmur, no gallops, or rubs. RESPIRATORY: no rales or wheezing, decreased in bases GASTROINTESTINAL: Abdomen soft, non-tender, nondistended. Obese EXTREMITIES: No cyanosis, 1+ edema NEUROLOGICAL: Awake, alert, and oriented x 3. Non-focal. Laboratory Laboratory Tests Test 04/14/17 04/14/17 04/14/17 04/15/17 17:00 17:15 19:22 00:01 Sodium Level 137 Potassium Level 5.1 Chloride Level 99 Carbon Dioxide Level 29.4 Anion Gap 9 Blood Urea Nitrogen 35 Creatinine 2.25 Estimat Glomerular Filtration 26 Rate Random Glucose 83 Calcium Level 9.0 Magnesium Level 2.1 Total Creatine Kinase 336 256 Creatine Kinase MB 1.6 1.8 Creatine Kinase MB % 0.5 0.7 Troponin I 0.04 0.05 B-Type Natriuretic Peptide 1234 Prothrombin Time 19.6 Prothromb Time International 1.7 Ratio Activated Partial 37.8 Thromboplast Time White Blood Count 5.8 Red Blood Count 3.75 Hemoglobin 10.0 Hematocrit 31.6 Mean Corpuscular Volume 84.3 Mean Corpuscular Hemoglobin 26.6 Mean Corpuscular Hemoglobin 31.6 Concent Red Cell Distribution Width 19.9 Platelet Count 126 Mean Platelet Volume 9.8 Neutrophils (%) (Auto) 69.6 Lymphocytes (%) (Auto) 13.5 Monocytes (%) (Auto) 11.9 Eosinophils (%) (Auto) 4.2 Basophils (%) (Auto) 0.8 Neutrophils # (Auto) 4.0 Lymphocytes # (Auto) 0.8 Monocytes # (Auto) 0.7 Eosinophils # (Auto) 0.2 Basophils # (Auto) 0.0 CBC Comment DIFF FINAL Differential Comment Test 04/15/17 07:15 White Blood Count 5.4 Red Blood Count 3.47 Hemoglobin 9.3 Hematocrit 29.3 Mean Corpuscular Volume 84.5 Mean Corpuscular Hemoglobin 26.8 Mean Corpuscular Hemoglobin 31.7 Concent Red Cell Distribution Width 20.1 Platelet Count 119 Mean Platelet Volume 9.6 Neutrophils (%) (Auto) 68.9 Lymphocytes (%) (Auto) 13.8 Monocytes (%) (Auto) 11.5 Eosinophils (%) (Auto) 5.2 Basophils (%) (Auto) 0.6 Neutrophils # (Auto) 3.7 Lymphocytes # (Auto) 0.7 Monocytes # (Auto) 0.6 Eosinophils # (Auto) 0.3 Basophils # (Auto) 0.0 CBC Comment DIFF FINAL Differential Comment Sodium Level 139 Potassium Level 3.2 Chloride Level 100 Carbon Dioxide Level 31.2 Anion Gap 8 Blood Urea Nitrogen 32 Creatinine 1.85 Estimat Glomerular Filtration 33 Rate Random Glucose 106 Calcium Level 9.1 Total Creatine Kinase 235 Creatine Kinase MB 1.7 Creatine Kinase MB % 0.7 Troponin I 0.05 (Kacie Calderon) Result Diagram: 04/15/17 0715 04/15/17 0715 Imaging Last 72 hours Impressions Chest X-Ray 04/14/17 1405 Signed Impressions: Service Date/Time: Friday, April 14, 2017 14:28 - CONCLUSION: Compensated cardiomegaly otherwise negative Claus Kimble MD FACR (Kacie Calderon) Assessment and Plan Problem List: (1) ARF (acute renal failure) Plan: in a patient with CKD 4, baseline creatinine is 1.88 most recent labs show improvement to baseline [place] on hold potassium was replaced orally at this time avoid nephrotoxins follow renal function daily (2) CHF (congestive heart failure) Plan: BNP elevated, echo ordered diuretics changed to lasix 40 BID follow fluid status avoid IVF low salt diet, elevate lower extremities (3) SOB (shortness of breath) Plan: may be due to CHF exacerbation vs. A fib RVR at this time continue oxygen, diuretic therapy chest xray not suggesting pneumonia (4) Atrial fibrillation Plan: she is bradycardic anticoagulated with Coumadin INR 1.7 she has prosthetic valve requiring anticoagulation as well she was given extra dose of Coumadin, started on heparin gtt closely follow INR (5) Anemia in CKD (chronic kidney disease) Plan: check iron profile (6) Hypertension Plan: home amlodipine was stopped due to lower extremity edema she was started on 2.5 mg lisinopril which is held diuretics continue she is not hypotensive since admission, reportedly was at physician's office (Kacie Calderon) Assessment and Plan patient was seen and examined. Continue Lasix. No indication for dialysis at this time. Rate control measures. On anticoagulation. (Craig Salmeron MD) Problem Qualifiers (1) CHF (congestive heart failure): Qualified Code: I50.9 - Congestive heart failure, unspecified congestive heart failure chronicity, unspecified congestive heart failure type (2) Atrial fibrillation: Qualified Code: I48.2 - Chronic atrial fibrillation Kacie Calderon Apr 15, 2017 12:19 Craig Salmeron MD Apr 15, 2017 21:52
[2017-04-15] MEDS: AMOXICILLIN (TRIHYDRATE) 250 MG CAP PO SCH ×2 (12:21→21:00)
--- NOTE | 2017-04-15 13:42 | HHI.PR ---
Subjective Remarks fu afib RVR, CHF exacerbation, subtherapeutic INR, SOB Patient states she feels much better denies cp heart rate in the 50's Objective Vitals Vital Signs Date Time Temp Pulse Resp B/P Pulse Ox O2 Delivery O2 Flow Rate FiO2 04/15/17 12:00 97.9 52 17 140/69 99 04/15/17 08:00 96.4 53 19 131/67 93 04/15/17 04:25 95.5 49 21 153/60 94 04/15/17 00:20 96.0 51 20 154/67 94 04/14/17 22:26 52 18 156/68 98 Nasal Cannula 2 04/14/17 19:08 48 16 146/67 100 Nasal Cannula 2 04/14/17 17:30 49 24 168/74 98 Nasal Cannula 2 04/14/17 16:23 98 Nasal Cannula 2 04/14/17 16:10 Nasal Cannula 2 04/14/17 13:51 97.4 45 20 170/72 98 I/O 04/14/17 04/14/17 04/14/17 04/15/17 04/15/17 04/15/17 07:00 15:00 23:00 07:00 15:00 23:00 Intake Total 240 ml Balance 240 ml Intake Oral 240 ml # Voids 1 2 # Bowel Movements 0 Result Diagram: 04/15/17 0715 04/15/17 0715 Imaging Last Impressions Chest X-Ray 04/14/17 1405 Signed Impressions: Service Date/Time: Friday, April 14, 2017 14:28 - CONCLUSION: Compensated cardiomegaly otherwise negative Claus Kimble MD FACR Objective Remarks AAOx3 S1S2 irregularly irregular clear lungs BL +1 edema in lower extremities. Procedures none Medications and IVs Current Medications Medications (Trade) Dose Ordered Sig/Mar Route Start Time Stop Time Status Last Admin (NS Flush) 2 ml UNSCH PRN IV FLUSH 04/14/17 20:45 (NS Flush) 2 ml BID IV FLUSH 04/14/17 21:00 04/15/17 09:14 (Narcan Inj) 0.4 mg UNSCH PRN IV 04/14/17 20:45 (Lasix Inj) 40 mg BID@,18 IV PUSH 04/15/17 09:00 04/15/17 09:09 (Coumadin) 3 mg DAILY@1600 PO 04/15/17 01:00 04/15/17 02:29 (Zyloprim) 100 mg DAILY PO 04/15/17 09:00 04/15/17 09:09 (Urecholine) 12.5 mg ACHS PO 04/15/17 07:00 04/15/17 12:21 (Neurontin) 100 mg TID PO 04/15/17 09:00 04/15/17 12:21 (Prinivil) 2.5 mg DAILY PO 04/15/17 09:00 Hold 04/15/17 09:10 (Pravachol) 80 mg HS PO 04/15/17 21:00 (D50w (Vial) Inj) 50 ml UNSCH PRN IV 04/15/17 02:00 (Glucagon Inj) 1 mg UNSCH PRN OTHER 04/15/17 02:00 Amoxicillin 250 mg 250 mg Q12HR PO 04/15/17 09:00 04/15/17 12:21 (Heparin-D5W Inj) 250 ml @ 0 mls/hr TITRATE IV 04/15/17 02:30 04/15/17 04:29 A/P Problem List: (1) CHF exacerbation ICD Code: I50.9 Status: Acute (2) Chronic kidney disease ICD Code: N18.9 Status: Chronic (3) Diabetes ICD Code: E11.9 Status: Chronic (4) Hypertension ICD Code: I10 Status: Chronic (5) Diarrhea ICD Code: R19.7 Status: Acute Assessment and Plan 71 y/o female with a medical history of CHF, HTN, DM, afib, MVR([facility]), pituitary tumor and CKD stage 4 presented to the ED with complaints of increased sob and lower extremity edema . 1. Acute on chronic diastolic CHF exacerbation. Last echocardiogram showed EF 60-65%. Possibly multifactorial given fluid overload due to CKD stage four, patient also recently switched from Lasix to Bumex. BNP 1234 -Chest xray reviewed and shows Compensated cardiomegaly and peripheral vascular congestion. -Patient started on Lasix 40 mg IV twice a day. Continue. -Cardiology consulted. Appreciate recommendations. -2-D echocardiogram ordered and pending Acute kidney injury on chronic kidney disease stage 4 Hypokalemia -Nephrology consulted. Patient creatinine is 1.88. -AEMR[place] on hold, potassium replaced orally. Continue to monitor BMP -Continue to monitor strict I's and O's, avoid nephrotoxins, monitor fluid status. -Creatinine down to baseline. Diarrhea, acute, with recent antibiotic use -Check c diff - pending HTN, chronic, currently stable -Hold AMERICO inhibitor - BP stable. DM, chronic -Accu checks AC/HS with SSI. -Blood sugars stable. Subtherapeutic INR -Metallic mitral valve replacementon chronic anticoagulation with Coumadin. Currently subtherapeutic INR - 1.7 -Continue heparin drip, DC heparin drip when INR more than 2. DVT prophylaxis: heparin gtt Discharge Planning Pending clinical improvement. Pending Echo. Problem Qualifiers (1) CHF exacerbation: Qualified Code: I50.9 - Acute on chronic congestive heart failure, unspecified congestive heart failure type (2) Chronic kidney disease: Qualified Code: N18.4 - Stage 4 chronic kidney disease (3) Diabetes: Qualified Code: E11.9 - Type 2 diabetes mellitus without complication, without long-term current use of insulin (4) Diarrhea: Qualified Code: A09 - Diarrhea of presumed infectious origin Breezy Lema MD Apr 15, 2017 13:42
--- NOTE | 2017-04-15 14:55 | EKG ---
Date Performed: 04/14/2017 Time Performed: 14:53:44 PTAGE: 71 years EKG: PROBABLE SINUS BRADYCARDIA WITH PREMATURE ATRIAL CONTRACTIONS POSSIBLE RIGHT VENTRICULAR HY PERTROPHY NONSPECIFIC T-WAVE ABNORMALITY PROLONGED QT INTERVAL Baseline artifact When compared to pre vious tracing, the patient now appears to Be in a Sinus rhythm . ABNORMAL ECG PREVIOUS TRACING : 08/22/2016 04.34 DOCTOR: Sonal Tinoco Interpretating Date/Time 04/15/2017 14:54:18
--- NOTE | 2017-04-15 14:56 | EKG ---
Date Performed: 04/14/2017 Time Performed: 23:54:17 PTAGE: 71 years EKG: JUNCTIONAL BRADYCARDIA POSSIBLE RIGHT VENTRICULAR HYPERTROPHY When compared to previous tra cing, the patient is now in a Junctional rhythm. ABNORMAL ECG PREVIOUS TRACING : 04/14/2017 14.53 DOCTOR: Sonal Tinoco Interpretating Date/Time 04/15/2017 14:55:02
--- NOTE | 2017-04-15 18:01 | ECHRPT ---
Indication: Heart failure, unspecified CONCLUSIONS Normal left ventricular size. Moderate concentric left ventricular hypertrophy. The right ventricle is moderately dilated. The right ventricular systoilc function is moderately decreased. The right atrial size is moderately dilated. Normally functioning mechanical mitral valve prosthesis. Trace mitral valve regurgitation. No mitral valve stenosis. Mild thickening of the tricuspid valve leaflets. There is severe tricuspid regurgitation. There is estimated mild pulmonary hypertension present (range 40-50 mmHg). The left ventricular systolic function is normal with an estimated ejection fraction in the range of 60-65%. BP: / HR: Rhythm: Sinus MEASUREMENTS (Male / Female) Normal Values Technical Quality:Good 2D ECHO LV Diastolic Diameter PLAX 3.6 cm 4.2 - 5.9 / 3.9 - 5.3 cm LV Systolic Diameter PLAX 2.5 cm IVS Diastolic Thickness 1.5 cm 0.6 - 1.0 / 0.6 - 0.9 cm LVPW Diastolic Thickness 1.2 cm 0.6 - 1.0 / 0.6 - 0.9 cm LV Relative Wall Thickness 0.7 RV Internal Dim ED PLAX 2.8 cm LA Systolic Diameter LX 3.8 cm 3.0 - 4.0 / 2.7 - 3.8 cm M-MODE Aortic Root Diameter MM 3.5 cm AV Cusp Separation MM 1.9 cm DOPPLER AV Peak Velocity 259.5 cm/s AV Peak Gradient 26.9 mmHg AV Mean Gradient 14.0 mmHg AV Velocity Time Integral 83.4 cm LVOT Peak Velocity 132.0 cm/s LVOT Peak Gradient 7.0 mmHg LVOT Velocity Time Integral 34.2 cm MV Peak Velocity 181.0 cm/s MV Peak Gradient 13.1 mmHg MV Mean Velocity 68.6 cm/s MV Mean Gradient 3.0 mmHg MV Area PHT 3.1 cm Mitral E Point Velocity 105.0 cm/s Mitral A Point Velocity 63.2 cm/s Mitral E to A Ratio 1.7 TR Peak Velocity 335.0 cm/s TR Peak Gradient 44.9 mmHg FINDINGS LEFT VENTRICLE Normal left ventricular size. Moderate concentric left ventricular hypertrophy. The left ventricular systolic function is normal with an estimated ejection fraction in the range of 60-65%. RIGHT VENTRICLE The right ventricle is moderately dilated. The right ventricular systoilc function is moderately decreased. LEFT ATRIUM The left atrial size is normal. RIGHT ATRIUM The right atrial size is moderately dilated. ATRIAL SEPTUM Normal atrial septal thickness without atrial level shunting by limited color doppler interrogation. AORTA The aortic root and proximal ascending aorta are normal in size on limited imaging. MITRAL VALVE Normally functioning mechanical mitral valve prosthesis. Trace mitral valve regurgitation. No mitral valve stenosis. AORTIC VALVE Trileaflet aortic valve. No aortic valve stenosis or regurgitation. TRICUSPID VALVE Mild thickening of the tricuspid valve leaflets. There is severe tricuspid regurgitation. There is estimated mild pulmonary hypertension present (range 40-50 mmHg). PULMONARY VALVE The pulmonary valve is not well visualized. VESSELS The inferior vena cava is normal in size. PERICARDIUM No pericardial effusion. Samuel Gaitan MD, FACC (Electronically Signed) Final Date:15 April 2017 18:00
[2017-04-15 18:03] LABS: APTT (PATIENT) GREATER THAN 277.5 SEC (24.3-30.1)
[2017-04-15 18:04] LABS: APTT (PATIENT) GREATER THAN 277.5 SEC (24.3-30.1)
[2017-04-15 19:34] LABS: APTT (PATIENT) 54.9 SEC (24.3-30.1)
[2017-04-15] MEDS: PRAVASTATIN SOD 40 MG TAB PO SCH (21:00)
[2017-04-16] VITALS (8 sets, daily range): BP systolic 93–153; BP diastolic 53–69; PULSE 54–73; RESP 20–21; TEMP 96.8–99.4; O2SAT 97–100
[2017-04-16 03:54] LABS: BASOPHIL % 0.5 % (0.0-2.0); EOSINOPHIL # 0.3 TH/MM3 (0-0.4); EOSINOPHIL % 5.8 % (0.0-4.0); HEMATOCRIT 29.2 % (35.0-46.0); HEMO FLAGS DIFF FINAL; LYMPH % 13.8 % (9.0-44.0); LYMPHOCYTE # 0.8 TH/MM3 (1.0-4.8); MEAN CELL VOLUME 84.3 FL (80.0-100.0); MEAN CORPUSCULAR HEMOGLOBIN 26.8 PG (27.0-34.0); MEAN CORPUSCULAR HGB CONC 31.8 % (32.0-36.0); NEUT % 67.9 % (16.0-70.0); PLATELET COUNT 144 TH/MM3 (150-450); RED BLOOD COUNT 3.46 MIL/MM3 (4.00-5.30); RED CELL DISTRIBUTION WIDTH 19.8 % (11.6-17.2); WHITE BLOOD COUNT 5.9 TH/MM3 (4.0-11.0)
[2017-04-16 04:29] LABS: TRANSFERRIN IRON PROFILE 367 MG/DL (200-360)
[2017-04-16 04:30] LABS: ANION GAP 4 MEQ/L (5-15); BICARBONATE 35.1 MEQ/L (21.0-32.0); BLOOD UREA NITROGEN 30 MG/DL (7-18); CHLORIDE 99 MEQ/L (98-107); GLOMERULAR FILTRATION RATE 33 ML/MIN (>89); POTASSIUM 3.6 MEQ/L (3.5-5.1); SODIUM (NA) 138 MEQ/L (136-145)
[2017-04-16] MEDS: BETHANECHOL CHL 25 MG TAB PO SCH ×4 (06:47→22:25)
[2017-04-16] MEDS: INSULIN ASPART SUPPLEMENTAL SCALE SQ SCH ×4 (06:49→22:22)
[2017-04-16] MEDS: AMOXICILLIN (TRIHYDRATE) 250 MG CAP PO SCH ×2 (10:27→22:23)
[2017-04-16] MEDS: ALLOPURINOL 100 MG TAB PO SCH (10:27)
[2017-04-16] MEDS: FUROSEMIDE 40 MG/4 ML VIAL IV PUSH SCH ×2 (10:27→17:55)
[2017-04-16] MEDS: SODIUM CHLORIDE 0.9% FLUSH 10 ML FLUSH IV FLUSH SCH ×2 (10:28→22:24)
[2017-04-16] MEDS: GABAPENTIN 100 MG CAP PO SCH ×4 (10:28→22:23)
--- NOTE | 2017-04-16 11:12 | HHI.NPPN ---
Subjective General Problems: Anemia, Edema Renal Failure: Chronic, Acute, Stage IV Interval History Renal function is stable. She reports feeling better. Still on heparin gtt. ( Kacie Calderon) Review of Systems General Constitutional: Fatigue (Kacie Calderon) Respiratory Lungs: SOB (Kacie Calderon) Cardiovascular Cardiac: Edema (Kacie Calderon) Objective Data Data 04/15/17 04/16/17 18:59 06:59 Intake Total 600 ml 720 ml Balance 600 ml 720 ml Intake Oral 600 ml 720 ml # Voids 6 5 # Bowel Movements 1 0 Vital Signs Date Time Temp Pulse Resp B/P Pulse Ox O2 Delivery O2 Flow Rate FiO2 04/16/17 08:00 97.4 62 21 147/67 100 04/16/17 04:25 98.4 54 21 93/53 97 04/16/17 01:00 Room Air 04/16/17 00:20 97.8 68 21 130/69 98 04/15/17 20:45 66 04/15/17 20:20 96.0 59 20 158/71 100 04/15/17 16:00 97.0 57 18 155/62 98 04/15/17 12:00 97.9 52 17 140/69 99 (Kacie Calderon) -: 04/16/17 0347 04/16/17 0347 Imaging Last Impressions Chest X-Ray 04/14/17 1405 Signed Impressions: Service Date/Time: Friday, April 14, 2017 14:28 - CONCLUSION: Compensated cardiomegaly otherwise negative Claus Kimble MD FACR (Kacie Calderon) Physical Exam General Appearance: Well Developed, Well Nourished, Comfortable, Obese (Kacie Calderon) Throat Throat Exam: Oral Mucosa [place] & Moist (Kacie Calderon) Pulmonary Resp Exam: Clear Bilaterally, Breath Sounds Equal (Kacie Calderon) Cardiology CV Exam: Regular, Normal Sinus Rhythm (Kacie Calderon) Gastrointestinal/Abdomen GI Exam: Soft, Non-Tender, Bowel Sounds Present (Kacie Calderon) Musculoskeletal MS Exam: Joints Intact, Normal Gait, Normal Tone, Good Strength (Kacie Calderon) Integumentary Skin Exam: Clear, Warm, Dry, Intact (Kacie Calderon) Extremeties Extremities Exam: Pedal Pulses Palpable, Trace Edema (Kacie Calderon) Neurologic Neuro Exam: Alert, Awake, Oriented, Speech Clear, Moving All Extremities ( Kacie Calderon) Psychiatric Psych Exam: Appropriate Responses (Kacie Calderon) VTE Prophylaxis Meds: Heparin, Coumadin (Kacie Calderon) Assessment/Plan Discussed Condition With: Patient Assessment Summary: Anemia of CKD, Proteinuria, CHF, Hypertension, Diabetes Mellitus, CKD Stage IV Problem List: (1) ARF (acute renal failure) Plan: in a patient with CKD 4, baseline creatinine is 1.88 renal funciton is at baseline and stable AMERICO on hold potassium corrected UA is ordered at this time avoid nephrotoxins follow renal function daily she is non oliguric (2) CHF (congestive heart failure) Plan: cardiology following on Lasix BID, 40 mg , follow fluid status avoid IVF low salt diet, elevate lower extremities echo reviewed, EF 60-65%, right vent dilatation, LVH, reduced RV systolic function (3) SOB (shortness of breath) Plan: improving, likely due to CHF exacerbation at this time continue oxygen, diuretic therapy chest xray not suggesting pneumonia (4) Atrial fibrillation Plan: rate improved anticoagulated with Coumadin , subtherapeutic, on heparin gtt as bridge therapy closely follow INR (5) Anemia in CKD (chronic kidney disease) Plan: low iron stores start IV venofer (6) Hypertension Plan: home amlodipine was stopped due to lower extremity edema she was started on 2.5 mg lisinopril which is held diuretics continue she is not hypotensive since admission, reportedly was at physician's office continue to monitor (Kacie Calderon) Plan patient was seen and examined. Agree with above assessment and plan. (Craig Salmeron MD) Problem Qualifiers (1) CHF (congestive heart failure): Qualified Code: I50.9 - Congestive heart failure, unspecified congestive heart failure chronicity, unspecified congestive heart failure type (2) Atrial fibrillation: Qualified Code: I48.2 - Chronic atrial fibrillation Kacie Calderon Apr 16, 2017 11:12 Craig Salmeron MD Apr 16, 2017 14:27
[2017-04-16] MEDS ORDERED: ACETAMINOPHEN 325 MG TAB PO PRN (11:15)
[2017-04-16] MEDS: IRON SUCROSE INJ 100 MG in SODIUM CHLORIDE 0.9% INJ 100 ML IV SCH (12:55)
--- NOTE | 2017-04-16 12:57 | PD.CARD.PN ---
Subjective Subjective Remarks no overnight events no CV complaints Objective Medications Current Medications Medications (Trade) Dose Ordered Sig/Mar Route Start Time Stop Time Status Last Admin (NS Flush) 2 ml UNSCH PRN IV FLUSH 04/14/17 20:45 (NS Flush) 2 ml BID IV FLUSH 04/14/17 21:00 04/16/17 10:28 (Narcan Inj) 0.4 mg UNSCH PRN IV 04/14/17 20:45 (Lasix Inj) 40 mg BID@09,18 IV PUSH 04/15/17 09:00 04/16/17 10:27 (Coumadin) 3 mg DAILY@1600 PO 04/15/17 01:00 04/15/17 16:00 (Zyloprim) 100 mg DAILY PO 04/15/17 09:00 04/16/17 10:27 (Urecholine) 12.5 mg ACHS PO 04/15/17 07:00 04/16/17 10:54 (Neurontin) 100 mg TID PO 04/15/17 09:00 04/16/17 10:28 (Prinivil) 2.5 mg DAILY PO 04/15/17 09:00 Hold 04/15/17 09:10 (Pravachol) 80 mg HS PO 04/15/17 21:00 04/15/17 21:00 (D50w (Vial) Inj) 50 ml UNSCH PRN IV 04/15/17 02:00 (Glucagon Inj) 1 mg UNSCH PRN OTHER 04/15/17 02:00 Amoxicillin 250 mg 250 mg Q12HR PO 04/15/17 09:00 04/16/17 10:27 (Heparin-D5W Inj) 250 ml @ 0 mls/hr TITRATE IV 04/15/17 02:30 04/15/17 21:06 Acetaminophen 650 mg 650 mg Q6HR PRN PO 04/16/17 11:15 (Venofer Inj/NS Inj) 105 ml @ 105 mls/hr DAILY IV 04/16/17 11:15 04/18/17 09:59 Vital Signs / I&O Vital Signs Date Time Temp Pulse Resp B/P Pulse Ox O2 Delivery O2 Flow Rate FiO2 04/16/17 10:30 100 Nasal Cannula 2.00 04/16/17 08:00 97.4 62 21 147/67 100 04/16/17 04:25 98.4 54 21 93/53 97 04/16/17 01:00 Room Air 04/16/17 00:20 97.8 68 21 130/69 98 04/15/17 20:45 66 04/15/17 20:20 96.0 59 20 158/71 100 04/15/17 16:00 97.0 57 18 155/62 98 I/O 04/15/17 04/15/17 04/15/17 04/16/17 04/16/17 04/16/17 07:00 15:00 23:00 07:00 15:00 23:00 Intake Total 240 ml 1080 ml 240 ml Balance 240 ml 1080 ml 240 ml Intake Oral 240 ml 1080 ml 240 ml # Voids 2 8 3 # Bowel Movements 0 1 0 Physical Exam GENERAL: Well-nourished, well-developed patient. SKIN: Warm and dry. HEAD: Normocephalic. EYES: No scleral icterus. No injection or drainage. NECK: Supple, trachea midline. No JVD or lymphadenopathy. CARDIOVASCULAR: Irr Irr, metallic ejection murmur at mitral position no gallops , or rubs. RESPIRATORY: Breath sounds equal bilaterally. No accessory muscle use. GASTROINTESTINAL: Abdomen soft, non-tender, nondistended. EXTREMITIES: No cyanosis, or edema. NEUROLOGICAL: Awake, alert, and oriented x 3. Non-focal. Laboratory Laboratory Tests Test 04/15/17 04/15/17 04/15/17 04/16/17 13:36 15:53 19:04 03:47 Activated Partial GREATER THAN GREATER THAN 54.9 SEC 113.0 SEC Thromboplast Time 277.5 SEC 277.5 SEC White Blood Count 5.9 TH/MM3 Red Blood Count 3.46 MIL/MM3 Hemoglobin 9.3 GM/DL Hematocrit 29.2 % Mean Corpuscular Volume 84.3 FL Mean Corpuscular Hemoglobin 26.8 PG Mean Corpuscular Hemoglobin 31.8 % Concent Red Cell Distribution Width 19.8 % Platelet Count 144 TH/MM3 Mean Platelet Volume 9.3 FL Neutrophils (%) (Auto) 67.9 % Lymphocytes (%) (Auto) 13.8 % Monocytes (%) (Auto) 12.0 % Eosinophils (%) (Auto) 5.8 % Basophils (%) (Auto) 0.5 % Neutrophils # (Auto) 4.0 TH/MM3 Lymphocytes # (Auto) 0.8 TH/MM3 Monocytes # (Auto) 0.7 TH/MM3 Eosinophils # (Auto) 0.3 TH/MM3 Basophils # (Auto) 0.0 TH/MM3 CBC Comment DIFF FINAL Differential Comment Sodium Level 138 MEQ/L Potassium Level 3.6 MEQ/L Chloride Level 99 MEQ/L Carbon Dioxide Level 35.1 MEQ/L Anion Gap 4 MEQ/L Blood Urea Nitrogen 30 MG/DL Creatinine 1.84 MG/DL Estimat Glomerular Filtration 33 ML/MIN Rate Random Glucose 103 MG/DL Calcium Level 8.5 MG/DL Phosphorus Level 3.5 MG/DL Iron Level 33 MCG/DL Total Iron Binding Capacity 514 MCG/DL Percent Iron Saturation 6.4 % Albumin 3.3 GM/DL Imaging Last Impressions Chest X-Ray 04/14/17 1405 Signed Impressions: Service Date/Time: Wednesday, April 14, 2017 14:28 - CONCLUSION: Compensated cardiomegaly otherwise negative Claus Kimble MD FACR Assessment and Plan Problem List: (1) CHF exacerbation Assessment and Plan: 71 y/o F with acute on chronic diastolic congestive heart failure, severe TR, CKD stage 4 and afib. She remains afebrile and hemodynamically stable. She has been responding well to IV diuresis, nephrology following. Reports feeling better from SOB. On Heparin gtt, Coumandin given yesterday however no INR ordered. Recommendations: Cont IV diuretics Lasix 40 BID Daily weight Low salt diet Cont rate control for Afib Cont OAC with Coumadin with Heparin bridge. Goal INR 2.5-3.5 given prothesis is in Mitral Position Follow daily INR Cont aggressive medical management for CAD F/U with Dr. Mireles/Cardiology upon discharge Sign Off (2) Atrial fibrillation (3) Diabetes (4) Diarrhea (5) Hypertension (6) Anemia (7) ARF (acute renal failure) (8) Anticoagulated on Coumadin Problem Qualifiers (1) CHF exacerbation: Qualified Code: I50.9 - Acute on chronic congestive heart failure, unspecified congestive heart failure type (2) Atrial fibrillation: Qualified Code: I48.2 - Chronic atrial fibrillation (3) Diabetes: Qualified Code: E11.9 - Type 2 diabetes mellitus without complication, without long-term current use of insulin (4) Diarrhea: Qualified Code: A09 - Diarrhea of presumed infectious origin Elton Stevenson MD Apr 16, 2017 12:57
--- NOTE | 2017-04-16 16:09 | HHI.PR ---
Subjective Remarks Diffuse bilateral expiratory wheezing and cough patient states she desated while ambulating and was brought back to chair denies cp still sob afebrile Objective Vitals Vital Signs Date Time Temp Pulse Resp B/P Pulse Ox O2 Delivery O2 Flow Rate FiO2 04/16/17 15:10 63 04/16/17 12:00 96.8 59 20 152/66 97 04/16/17 10:30 100 Nasal Cannula 2.00 04/16/17 08:00 97.4 62 21 147/67 100 04/16/17 04:25 98.4 54 21 93/53 97 04/16/17 01:00 Room Air 04/16/17 00:20 97.8 68 21 130/69 98 04/15/17 20:45 66 04/15/17 20:20 96.0 59 20 158/71 100 I/O 04/15/17 04/15/17 04/15/17 04/16/17 04/16/17 04/16/17 07:00 15:00 23:00 07:00 15:00 23:00 Intake Total 240 ml 1080 ml 240 ml Balance 240 ml 1080 ml 240 ml Intake Oral 240 ml 1080 ml 240 ml # Voids 2 8 3 # Bowel Movements 0 1 0 Result Diagram: 04/16/17 0347 04/16/17 0347 Imaging Last Impressions Chest X-Ray 04/14/17 1405 Signed Impressions: Service Date/Time: Friday, April 14, 2017 14:28 - CONCLUSION: Compensated cardiomegaly otherwise negative Claus Kimble MD FACR Objective Remarks AAOx3 S1S2 irregularly irregular Diffuse exp wheezing and decreased breath sounds on exam +1 edema in lower extremities. Procedures none Medications and IVs Current Medications Medications (Trade) Dose Ordered Sig/Mar Route Start Time Stop Time Status Last Admin (NS Flush) 2 ml UNSCH PRN IV FLUSH 04/14/17 20:45 (NS Flush) 2 ml BID IV FLUSH 04/14/17 21:00 04/16/17 10:28 (Narcan Inj) 0.4 mg UNSCH PRN IV 04/14/17 20:45 (Lasix Inj) 40 mg BID@09,18 IV PUSH 04/15/17 09:00 04/16/17 17:55 (Coumadin) 3 mg DAILY@1600 PO 04/15/17 01:00 8/4/17 18:51 (Zyloprim) 100 mg DAILY PO 04/15/17 09:00 04/16/17 10:27 (Urecholine) 12.5 mg ACHS PO 04/15/17 07:00 04/16/17 17:54 (Neurontin) 100 mg TID PO 04/15/17 09:00 04/16/17 17:55 (Prinivil) 2.5 mg DAILY PO 04/15/17 09:00 Hold 04/15/17 09:10 (Pravachol) 80 mg HS PO 04/15/17 21:00 04/15/17 21:00 (D50w (Vial) Inj) 50 ml UNSCH PRN IV 04/15/17 02:00 (Glucagon Inj) 1 mg UNSCH PRN OTHER 04/15/17 02:00 Amoxicillin 250 mg 250 mg Q12HR PO 04/15/17 09:00 04/16/17 10:27 (Heparin-D5W Inj) 250 ml @ 0 mls/hr TITRATE IV 04/15/17 02:30 04/15/17 21:06 Acetaminophen 650 mg 650 mg Q6HR PRN PO 04/16/17 11:15 Iron Sucrose 100 mg/Sodium Chloride 105 ml @ 105 mls/hr DAILY IV 04/16/17 11:15 04/18/17 09:59 04/16/17 12:55 (Coumadin Consult Pharmacy) 0 ml @ 0 mls/hr UNSCH OTHER 04/16/17 13:15 (SoluMEDROL INJ) 40 mg Q6HR IV PUSH 04/16/17 18:00 04/16/17 17:55 Urinary Catheter: No Vascular Central Line Catheter: No A/P Problem List: (1) CHF exacerbation ICD Code: I50.9 Status: Acute (2) Chronic kidney disease ICD Code: N18.9 Status: Chronic (3) Diabetes ICD Code: E11.9 Status: Chronic (4) Hypertension ICD Code: I10 Status: Chronic (5) Diarrhea ICD Code: R19.7 Status: Resolved Assessment and Plan 71 y/o female with a medical history of CHF, HTN, DM, afib, MVR([place]), pituitary tumor and CKD stage 4 presented to the ED with complaints of increased sob and lower extremity edema . 1. Acute on chronic diastolic CHF exacerbation. Last echocardiogram showed EF 60-65%. Possibly multifactorial given fluid overload due to CKD stage four, patient also recently switched from Lasix to Bumex. BNP 1234 -Chest xray reviewed and shows Compensated cardiomegaly and peripheral vascular congestion. -Patient started on Lasix 40 mg IV twice a day. Continue. -Cardiology consulted. Appreciate recommendations. -echo reviewed, EF 60-65%, right vent dilatation, LVH, reduced RV systolic function -04/16 Patient has BL exp wheezing - Will start on Iv Solumedrol. Acute kidney injury on chronic kidney disease stage 4 Hypokalemia - resolved -Nephrology consulted. Patient creatinine is 1.88. -AMERICO on hold, potassium replaced orally. Continue to monitor BMP -Continue to monitor strict I's and O's, avoid nephrotoxins, monitor fluid status. -Creatinine down to baseline. Diarrhea, acute, with recent antibiotic use -Check c diff - pending HTN, chronic, currently stable -Hold AMERICO inhibitor - BP stable. DM, chronic -Accu checks AC/HS with SSI. -Blood sugars stable. Subtherapeutic INR -Metallic mitral valve replacementon chronic anticoagulation with Coumadin. Currently subtherapeutic INR - 1.7 -Continue heparin drip, DC heparin drip when INR more than 2. DVT prophylaxis: heparin gtt Problem Qualifiers (1) CHF exacerbation: Qualified Code: I50.9 - Acute on chronic congestive heart failure, unspecified congestive heart failure type (2) Chronic kidney disease: Qualified Code: N18.4 - Stage 4 chronic kidney disease (3) Diabetes: Qualified Code: E11.9 - Type 2 diabetes mellitus without complication, without long-term current use of insulin (4) Diarrhea: Qualified Code: A09 - Diarrhea of presumed infectious origin Breezy Lema MD Apr 16, 2017 16:09
[2017-04-16] MEDS: methylPREDNISolone SOD SUCC 40 MG/1 ML VIAL IV PUSH SCH (17:55)
[2017-04-16 18:17] LABS: INTERNATIONAL NORMALIZED RATIO 2.4 RATIO; PROTHROMBIN TIME - PATIENT 27.4 SEC (9.8-11.6)
[2017-04-16 18:21] LABS: APTT (PATIENT) 136.1 SEC (24.3-30.1)
[2017-04-16] MEDS: WARFARIN SOD 3 MG TAB PO SCH (18:51)
[2017-04-16] MEDS: PRAVASTATIN SOD 40 MG TAB PO SCH (22:23)
[2017-04-17] VITALS (12 sets, daily range): BP systolic 142–156; BP diastolic 60–77; PULSE 68–107; RESP 17–22; TEMP 96.3–97.5; O2SAT 92–100
[2017-04-17] MEDS: methylPREDNISolone SOD SUCC 40 MG/1 ML VIAL IV PUSH SCH ×3 (00:29→12:26)
[2017-04-17] MEDS: PANTOPRAZOLE SODIUM 40 MG VIAL IV PUSH SCH (02:06)
[2017-04-17 03:19] LABS: INTERNATIONAL NORMALIZED RATIO 2.2 RATIO; PROTHROMBIN TIME - PATIENT 24.8 SEC (9.8-11.6)
[2017-04-17 04:09] LABS: BICARBONATE 34.4 MEQ/L (21.0-32.0); POTASSIUM 3.8 MEQ/L (3.5-5.1)
[2017-04-17] MEDS: BETHANECHOL CHL 25 MG TAB PO SCH ×4 (06:33→20:40)
[2017-04-17] MEDS: INSULIN ASPART SUPPLEMENTAL SCALE SQ SCH ×3 (06:41→20:51)
[2017-04-17] MEDS: SODIUM CHLORIDE 0.9% FLUSH 10 ML FLUSH IV FLUSH SCH ×2 (08:48→20:40)
[2017-04-17] MEDS: IRON SUCROSE INJ 100 MG in SODIUM CHLORIDE 0.9% INJ 100 ML IV SCH (08:48)
[2017-04-17] MEDS: ALLOPURINOL 100 MG TAB PO SCH (08:49)
[2017-04-17] MEDS: AMOXICILLIN (TRIHYDRATE) 250 MG CAP PO SCH ×2 (08:49→20:40)
[2017-04-17] MEDS: FUROSEMIDE 40 MG/4 ML VIAL IV PUSH SCH ×2 (08:50→16:48)
[2017-04-17] MEDS ORDERED: POTASSIUM PHOSPHATE/SODIUM PHOSPHATE 250 MG TAB PO ONE (09:45)
--- NOTE | 2017-04-17 10:38 | HHI.NPPN ---
Subjective General Problems: Anemia, Edema Renal Failure: Chronic, Acute, Stage IV Interval History Renal function is better. Non oliguric. Review of Systems General Constitutional: Fatigue Respiratory Lungs: SOB Cardiovascular Cardiac: Edema Objective Data Data 04/16/17 04/17/17 19:00 07:00 Intake Total 719 ml 720 ml Output Total 600 ml Balance 119 ml 720 ml Intake Oral 480 ml 720 ml IV Total 239 ml Output Urine Total 600 ml # Voids 3 4 # Bowel Movements 1 0 Vital Signs Date Time Temp Pulse Resp B/P Pulse Ox O2 Delivery O2 Flow Rate FiO2 04/17/17 08:52 Nasal Cannula 2.00 04/17/17 08:00 96.3 72 17 152/77 99 04/17/17 06:39 68 04/17/17 04:30 96.8 107 21 142/68 94 04/17/17 03:14 Nasal Cannula 2.00 04/17/17 00:20 96.4 69 21 149/60 99 04/16/17 23:24 18 04/16/17 20:20 73 04/16/17 20:10 99.4 68 20 142/60 99 04/16/17 16:00 96.9 64 21 153/67 100 04/16/17 15:10 63 04/16/17 12:00 96.8 59 20 152/66 97 -: 04/16/17 0347 04/17/17 0239 Physical Exam General Appearance: Well Developed, Well Nourished, Comfortable, Obese Throat Throat Exam: Oral Mucosa [place] & Moist Pulmonary Resp Exam: Clear Bilaterally, Breath Sounds Equal Cardiology CV Exam: Regular, Normal Sinus Rhythm Gastrointestinal/Abdomen GI Exam: Soft, Non-Tender, Bowel Sounds Present Musculoskeletal MS Exam: Joints Intact, Normal Gait, Normal Tone, Good Strength Integumentary Skin Exam: Clear, Warm, Dry, Intact Extremeties Extremities Exam: Pedal Pulses Palpable, Trace Edema Neurologic Neuro Exam: Alert, Awake, Oriented, Speech Clear, Moving All Extremities Psychiatric Psych Exam: Appropriate Responses Assessment/Plan Discussed Condition With: Patient Assessment Summary: Anemia of CKD, Proteinuria, CHF, Hypertension, Diabetes Mellitus, CKD Stage IV Problem List: (1) ARF (acute renal failure) Plan: GFR has improved, at baseline. No need for dialysis. She can be discharged on oral Lasix. (2) CHF (congestive heart failure) Plan: cardiology following on Lasix BID, 40 mg , follow fluid status avoid IVF low salt diet, elevate lower extremities echo reviewed, EF 60-65%, right vent dilatation, LVH, reduced RV systolic function (3) SOB (shortness of breath) Plan: improving, likely due to CHF exacerbation at this time continue oxygen, diuretic therapy chest xray not suggesting pneumonia (4) Atrial fibrillation Plan: rate improved anticoagulated with Coumadin , subtherapeutic, on heparin gtt as bridge therapy closely follow INR (5) Anemia in CKD (chronic kidney disease) Plan: low iron stores start IV venofer (6) Hypertension Plan: home amlodipine was stopped due to lower extremity edema she was started on 2.5 mg lisinopril which is held diuretics continue she is not hypotensive since admission, reportedly was at physician's office continue to monitor Plan INR is 2.2. She can be discharged home from renal standpoint on Coumadin, and Lasix. No plans for dialysis. Problem Qualifiers (1) CHF (congestive heart failure): Qualified Code: I50.9 - Congestive heart failure, unspecified congestive heart failure chronicity, unspecified congestive heart failure type (2) Atrial fibrillation: Qualified Code: I48.2 - Chronic atrial fibrillation Craig Salmeron MD Apr 17, 2017 10:38
[2017-04-17] MEDS: GABAPENTIN 100 MG CAP PO SCH ×2 (12:25→16:47)
--- NOTE | 2017-04-17 13:16 | HHI.PR ---
Subjective Remarks c/o chest tightness last night which has resolved creatinine trending down sob much improved cough is better blood sugars wne tup above 200 Objective Vitals Vital Signs Date Time Temp Pulse Resp B/P Pulse Ox O2 Delivery O2 Flow Rate FiO2 04/17/17 11:49 97.2 73 17 156/62 92 04/17/17 08:52 Nasal Cannula 2.00 04/17/17 08:00 96.3 72 17 152/77 99 04/17/17 06:39 68 04/17/17 04:30 96.8 107 21 142/68 94 04/17/17 03:14 Nasal Cannula 2.00 04/17/17 00:20 96.4 69 21 149/60 99 04/16/17 23:24 18 04/16/17 20:20 73 04/16/17 20:10 99.4 68 20 142/60 99 04/16/17 16:00 96.9 64 21 153/67 100 04/16/17 15:10 63 I/O 04/16/17 04/16/17 04/16/17 04/17/17 04/17/17 04/17/17 07:00 15:00 23:00 07:00 15:00 23:00 Intake Total 240 ml 480 ml 719 ml 240 ml 222 ml Output Total 600 ml Balance 240 ml -120 ml 719 ml 240 ml 222 ml Intake Oral 240 ml 480 ml 480 ml 240 ml IV Total 239 ml 222 ml Output Urine Total 600 ml # Voids 3 3 2 2 # Bowel Movements 0 1 0 0 Result Diagram: 04/16/17 0347 04/17/17 0239 Imaging Last Impressions Chest X-Ray 04/14/17 1405 Signed Impressions: Service Date/Time: Friday, April 14, 2017 14:28 - CONCLUSION: Compensated cardiomegaly otherwise negative Claus Kimble MD FACR Objective Remarks AAOx3 S1S2 irregularly irregular Diffuse exp wheezing and decreased breath sounds on exam +1 edema in lower extremities. Procedures none Medications and IVs Current Medications Medications (Trade) Dose Ordered Sig/Amr Route Start Time Stop Time Status Last Admin (NS Flush) 2 ml UNSCH PRN IV FLUSH 04/14/17 20:45 04/17/17 12:26 (NS Flush) 2 ml BID IV FLUSH 04/14/17 21:00 04/17/17 08:48 (Narcan Inj) 0.4 mg UNSCH PRN IV 04/14/17 20:45 (Lasix Inj) 40 mg BID@09,18 IV PUSH 04/15/17 09:00 04/17/17 08:50 (Coumadin) 3 mg DAILY@1600 PO 04/15/17 01:00 04/16/17 18:51 (Zyloprim) 100 mg DAILY PO 04/15/17 09:00 04/17/17 08:49 (Urecholine) 12.5 mg ACHS PO 04/15/17 07:00 04/17/17 12:25 (Neurontin) 100 mg TID PO 04/15/17 09:00 04/17/17 12:25 (Prinivil) 2.5 mg DAILY PO 04/15/17 09:00 Hold 04/15/17 09:10 (Pravachol) 80 mg HS PO 04/15/17 21:00 04/16/17 22:23 (D50w (Vial) Inj) 50 ml UNSCH PRN IV 04/15/17 02:00 (Glucagon Inj) 1 mg UNSCH PRN OTHER 04/15/17 02:00 Amoxicillin 250 mg 250 mg Q12HR PO 04/15/17 09:00 04/17/17 08:49 (Heparin-D5W Inj) 250 ml @ 0 mls/hr TITRATE IV 04/15/17 02:30 04/15/17 21:06 Acetaminophen 650 mg 650 mg Q6HR PRN PO 04/16/17 11:15 04/16/17 22:24 Iron Sucrose 100 mg/Sodium Chloride 105 ml @ 105 mls/hr DAILY IV 04/16/17 11:15 04/18/17 09:59 04/17/17 08:48 (Coumadin Consult Pharmacy) 0 ml @ 0 mls/hr UNSCH OTHER 04/16/17 13:15 (Protonix Inj) 40 mg Q24H IV PUSH 04/17/17 02:00 04/17/17 02:06 (SoluMEDROL INJ) 40 mg Q12HR IV PUSH 04/17/17 21:00 A/P Problem List: (1) CHF exacerbation ICD Code: I50.9 Status: Acute (2) Chronic kidney disease ICD Code: N18.9 Status: Chronic (3) Diabetes ICD Code: E11.9 Status: Chronic (4) Hypertension ICD Code: I10 Status: Chronic (5) Diarrhea ICD Code: R19.7 Status: Resolved (6) Subtherapeutic international normalized ratio (INR) ICD Code: R79.1 Status: Acute (7) Chest pain ICD Code: R07.9 Status: Resolved Assessment and Plan 71 y/o female with a medical history of CHF, HTN, DM, afib, MVR([facility]), pituitary tumor and CKD stage 4 presented to the ED with complaints of increased sob and lower extremity edema . 1. Acute on chronic diastolic CHF exacerbation. Last echocardiogram showed EF 60-65%. Possibly multifactorial given fluid overload due to CKD stage four, patient also recently switched from Lasix to Bumex. BNP 1234 -Chest xray reviewed and shows Compensated cardiomegaly and peripheral vascular congestion. -Patient started on Lasix 40 mg IV twice a day. Continue. -Cardiology consulted. Appreciate recommendations. -echo reviewed, EF 60-65%, right vent dilatation, LVH, reduced RV systolic function -04/16 Patient has BL exp wheezing - Will start on Iv Solumedrol. - 04/17 SOB and wheezing improved - taper Solumedrol dose down to 40 mg IV Q 12 hrs. I will also order a respiratory home walk test since the patient had some episodes of oxygen desaturation on ambulation. Acute kidney injury on chronic kidney disease stage 4 Hypokalemia - resolved -Nephrology consulted. Patient creatinine is 1.88. -AMERICO on hold, potassium replaced orally. Continue to monitor BMP -Continue to monitor strict I's and O's, avoid nephrotoxins, monitor fluid status. -Creatinine down to baseline. 04/[address] Salmeron - Patient cleared for Dc on po lasix. Diarrhea, acute, with recent antibiotic use -Check c diff - pending HTN, chronic, currently stable -Hold AMERICO inhibitor - BP stable. DM, chronic -Accu checks AC/HS with SSI. -Blood sugars very elevated today with blood sugar in the 200s, likely secondary to steroid use. I will increase the sliding scale coverage from low scale to medium scale. Continue to monitor Accu-Cheks. Subtherapeutic INR -Metallic mitral valve replacementon chronic anticoagulation with Coumadin. Currently subtherapeutic INR - 1.7 -Continue heparin drip - goal INR 2.5 to 3.5 due to Metallic Mitral valve - discussed w RN to resume heparin gtt since INR dropped from 2.4 to 2.2. Consult pharmacy to help with dosing. Chest pain -Resolved. She states she had a stress test with Dr. Mireles last year which was reportedly negative. Patient had an EKG overnight which shows sinus tachycardia with right axis deviation and right ventricular hypertrophy. No ST- T changes suggestive of active ischemia. Etiology following. Cardiac enzymes is stable at 0.05 and 0.06 last night. Follow-up outpatient with Dr. Mireles was discharged. DVT prophylaxis: heparin gtt Discharge Planning Pending respiratory walk test, INR to get to therapeutic 2.5-3.5. Problem Qualifiers (1) CHF exacerbation: Qualified Code: I50.9 - Acute on chronic congestive heart failure, unspecified congestive heart failure type (2) Chronic kidney disease: Qualified Code: N18.4 - Stage 4 chronic kidney disease (3) Diabetes: Qualified Code: E11.9 - Type 2 diabetes mellitus without complication, without long-term current use of insulin (4) Diarrhea: Qualified Code: A09 - Diarrhea of presumed infectious origin Breezy Lema MD Apr 17, 2017 13:16
--- NOTE | 2017-04-17 13:41 | EKG ---
Date Performed: 04/17/2017 Time Performed: 02:19:06 PTAGE: 71 years EKG: Sinus tachycardia. Right axis deviation Right ventricular hypertrophy Inferior and ant/sept al T wave changes are probably due to ventricular hypertrophy Abnormal ECG PREVIOUS TRACING 04/14/2017 23.54.17 Since previous tracing, no significant change noted DOCTOR: Barb Covarrubias Interpretating Date/Time 04/17/2017 13:39:09
[2017-04-17] MEDS ORDERED: HEPARIN-D5W INJ 250 ML IV SCH (16:30)
[2017-04-17] MEDS: WARFARIN SOD 3 MG TAB PO SCH (18:27)
[2017-04-17] MEDS: PRAVASTATIN SOD 40 MG TAB PO SCH (20:40)
[2017-04-17] MEDS ORDERED: methylPREDNISolone SOD SUCC 40 MG/1 ML VIAL IV PUSH SCH (21:00)
[2017-04-18] VITALS (8 sets, daily range): BP systolic 133–188; BP diastolic 58–97; PULSE 63–107; RESP 18–22; TEMP 95.8–97.6; O2SAT 94–99
[2017-04-18 02:37] LABS: APTT (PATIENT) 75.9 SEC (24.3-30.1); PROTHROMBIN TIME - PATIENT 35.4 SEC (9.8-11.6)
[2017-04-18] MEDS: PANTOPRAZOLE SODIUM 40 MG VIAL IV PUSH SCH (02:52)
[2017-04-18] MEDS: BETHANECHOL CHL 25 MG TAB PO SCH ×4 (06:17→21:41)
[2017-04-18] MEDS: INSULIN ASPART SUPPLEMENTAL SCALE SQ SCH ×4 (06:26→21:00)
[2017-04-18 08:26] LABS: HEMATOCRIT 30.4 % (35.0-46.0); MEAN CELL VOLUME 84.1 FL (80.0-100.0); MEAN CORPUSCULAR HEMOGLOBIN 26.9 PG (27.0-34.0); PLATELET COUNT 136 TH/MM3 (150-450); RED BLOOD COUNT 3.61 MIL/MM3 (4.00-5.30); REVIEW FLAG FINAL; WHITE BLOOD COUNT 14.2 TH/MM3 (4.0-11.0)
--- NOTE | 2017-04-18 08:53 | HHI.NPPN ---
Subjective General Problems: Anemia, Edema Renal Failure: Chronic, Acute, Stage IV Interval History Renal function had improved. Likely at baseline GFR. Hyperglycemia noted due to steroid use. Review of Systems General Constitutional: Fatigue Cardiovascular Cardiac: Edema Objective Data Data 04/17/17 04/18/17 19:00 07:00 Intake Total 1182 ml 480 ml Balance 1182 ml 480 ml Intake Oral 960 ml 480 ml IV Total 222 ml # Voids 3 3 # Bowel Movements 1 Vital Signs Date Time Temp Pulse Resp B/P Pulse Ox O2 Delivery O2 Flow Rate FiO2 04/18/17 04:38 65 04/18/17 04:00 97.6 65 22 133/59 94 04/18/17 00:00 97.5 72 22 142/58 95 04/17/17 20:52 Nasal Cannula 2.00 04/17/17 20:00 97.5 74 22 150/69 100 04/17/17 17:51 73 04/17/17 16:40 2.00 04/17/17 16:00 97.0 86 20 142/71 98 04/17/17 15:14 80 04/17/17 14:55 76 04/17/17 13:31 69 04/17/17 12:00 98 Nasal Cannula 2.00 04/17/17 11:49 97.2 73 17 156/62 92 04/17/17 08:52 Nasal Cannula 2.00 -: 04/18/17 0747 04/17/17 0239 Physical Exam General Appearance: Well Developed, Well Nourished, Comfortable, Obese Throat Throat Exam: Oral Mucosa [place] & Moist Pulmonary Resp Exam: Clear Bilaterally, Breath Sounds Equal Cardiology CV Exam: Regular, Normal Sinus Rhythm Gastrointestinal/Abdomen GI Exam: Soft, Non-Tender, Bowel Sounds Present Musculoskeletal MS Exam: Joints Intact, Normal Gait, Normal Tone, Good Strength Integumentary Skin Exam: Clear, Warm, Dry, Intact Extremeties Extremities Exam: Pedal Pulses Palpable, Trace Edema Neurologic Neuro Exam: Alert, Awake, Oriented, Speech Clear, Moving All Extremities Psychiatric Psych Exam: Appropriate Responses Assessment/Plan Discussed Condition With: Patient Assessment Summary: Anemia of CKD, Proteinuria, CHF, Hypertension, Diabetes Mellitus, CKD Stage IV Problem List: (1) ARF (acute renal failure) Plan: GFR has improved, at baseline. No need for dialysis. She can be discharged on oral loop diuretic: at home she was on Bumex 2 mg PO BID which can be continued. She thinks that Bumex works better for her. (2) CHF (congestive heart failure) Plan: cardiology following on Lasix BID, 40 mg , follow fluid status avoid IVF low salt diet, elevate lower extremities echo reviewed, EF 60-65%, right vent dilatation, LVH, reduced RV systolic function (3) SOB (shortness of breath) Plan: improving, likely due to CHF exacerbation at this time continue oxygen, diuretic therapy chest xray not suggesting pneumonia (4) Atrial fibrillation Plan: rate improved anticoagulated with Coumadin , subtherapeutic, on heparin gtt as bridge therapy closely follow INR (5) Anemia in CKD (chronic kidney disease) Plan: Received IV Venofer. (6) Hypertension Plan: home amlodipine was stopped due to lower extremity edema she was started on 2.5 mg lisinopril which is held diuretics continue she is not hypotensive since admission, reportedly was at physician's office continue to monitor (7) H/O mitral valve replacement with mechanical valve Plan: INR is 3, heparin can be stopped. Discussed with RN. Continue home dose of Coumadin. Problem Qualifiers (1) CHF (congestive heart failure): Qualified Code: I50.9 - Congestive heart failure, unspecified congestive heart failure chronicity, unspecified congestive heart failure type (2) Atrial fibrillation: Qualified Code: I48.2 - Chronic atrial fibrillation Craig Salmeron MD Apr 18, 2017 08:53
[2017-04-18] MEDS: IRON SUCROSE INJ 100 MG in SODIUM CHLORIDE 0.9% INJ 100 ML IV SCH (09:00)
[2017-04-18] MEDS: AMOXICILLIN (TRIHYDRATE) 250 MG CAP PO SCH ×2 (09:07→21:40)
[2017-04-18] MEDS: GABAPENTIN 100 MG CAP PO SCH ×3 (09:07→17:30)
[2017-04-18] MEDS: ALLOPURINOL 100 MG TAB PO SCH (09:07)
[2017-04-18] MEDS: SODIUM CHLORIDE 0.9% FLUSH 10 ML FLUSH IV FLUSH SCH ×2 (11:00→21:41)
[2017-04-18] MEDS: FUROSEMIDE 40 MG/4 ML VIAL IV PUSH SCH ×2 (11:53→17:30)
[2017-04-18] MEDS: PRAVASTATIN SOD 40 MG TAB PO SCH (21:40)
[2017-04-19 00:50] VITALS: BP 161/61; PULSE 73; RESP 21; TEMP 96.9; O2SAT 99
[2017-04-19] MEDS ORDERED: cloNIDine HCL 0.1 MG TAB PO PRN (01:00)
--- NOTE | 2017-04-19 01:00 | HHI.PR ---
Subjective Remarks deferred entry - patient seen on 04/18 at 18:15 sob much improved less cough denies fevers/chills wants to go home filed home walk test bp elevated Objective Vitals Vital Signs Date Time Temp Pulse Resp B/P Pulse Ox O2 Delivery O2 Flow Rate FiO2 04/18/17 20:40 96.8 86 19 188/77 96 04/18/17 16:00 96.1 71 18 145/61 97 04/18/17 12:00 96.6 70 19 144/97 99 04/18/17 08:00 95.8 107 19 181/82 97 04/18/17 04:38 65 04/18/17 04:00 97.6 65 22 133/59 94 I/O 04/18/17 04/18/17 04/18/17 04/19/17 04/19/17 04/19/17 07:00 15:00 23:00 07:00 15:00 23:00 Intake Total 120 ml 960 ml 480 ml Balance 120 ml 960 ml 480 ml Intake Oral 120 ml 960 ml 480 ml # Voids 2 4 2 # Bowel Movements 2 1 Result Diagram: 04/18/17 0747 04/17/17 0239 Imaging Last Impressions Chest X-Ray 04/14/17 1405 Signed Impressions: Service Date/Time: Friday, April 14, 2017 14:28 - CONCLUSION: Compensated cardiomegaly otherwise negative Claus Kimble MD FACR Objective Remarks AAOx3 S1S2 irregularly irregular Clear lungs BL and decreased breath sounds on exam no edema in lower extremities. Procedures none Medications and IVs Current Medications Medications (Trade) Dose Ordered Sig/Mar Route Start Time Stop Time Status Last Admin (NS Flush) 2 ml UNSCH PRN IV FLUSH 04/14/17 20:45 04/17/17 12:26 (NS Flush) 2 ml BID IV FLUSH 04/14/17 21:00 04/18/17 21:41 (Narcan Inj) 0.4 mg UNSCH PRN IV 04/14/17 20:45 (Coumadin) 3 mg DAILY@1600 PO 04/15/17 01:00 Hold 04/17/17 18:27 (Zyloprim) 100 mg DAILY PO 04/15/17 09:00 04/18/17 09:07 (Urecholine) 12.5 mg ACHS PO 04/15/17 07:00 04/18/17 21:41 (Neurontin) 100 mg TID PO 04/15/17 09:00 04/18/17 17:30 (Prinivil) 2.5 mg DAILY PO 04/15/17 09:00 Hold 04/15/17 09:10 (Pravachol) 80 mg HS PO 04/15/17 21:00 04/18/17 21:40 (D50w (Vial) Inj) 50 ml UNSCH PRN IV 04/15/17 02:00 (Glucagon Inj) 1 mg UNSCH PRN OTHER 04/15/17 02:00 (Trimox) 250 mg Q12HR PO 04/15/17 09:00 04/18/17 21:40 Acetaminophen 650 mg 650 mg Q6HR PRN PO 04/16/17 11:15 04/16/17 22:24 (Coumadin Consult Pharmacy) 0 ml @ 0 mls/hr UNSCH OTHER 04/16/17 13:15 (Protonix Inj) 40 mg Q24H IV PUSH 04/17/17 02:00 04/17/17 02:06 (Deltasone) 40 mg DAILY PO 04/19/17 09:00 (Lasix) 40 mg DAILY PO 04/19/17 09:00 A/P Problem List: (1) CHF exacerbation ICD Code: I50.9 Status: Acute (2) Chronic kidney disease ICD Code: N18.9 Status: Chronic (3) Diabetes ICD Code: E11.9 Status: Chronic (4) Hypertension ICD Code: I10 Status: Chronic (5) Diarrhea ICD Code: R19.7 Status: Resolved (6) Subtherapeutic international normalized ratio (INR) ICD Code: R79.1 Status: Acute (7) Chest pain ICD Code: R07.9 Status: Resolved Assessment and Plan 71 y/o female with a medical history of CHF, HTN, DM, afib, MVR([facility]), pituitary tumor and CKD stage 4 presented to the ED with complaints of increased sob and lower extremity edema . 1. Acute on chronic diastolic CHF exacerbation. Last echocardiogram showed EF 60-65%. Possibly multifactorial given fluid overload due to CKD stage four, patient also recently switched from Lasix to Bumex. BNP 1234 -Chest xray reviewed and shows Compensated cardiomegaly and peripheral vascular congestion. -Patient started on Lasix 40 mg IV twice a day. Continue. -Cardiology consulted. Appreciate recommendations. -echo reviewed, EF 60-65%, right vent dilatation, LVH, reduced RV systolic function -04/16 Patient has BL exp wheezing - Will start on Iv Solumedrol. - 04/17 SOB and wheezing improved - taper Solumedrol dose down to 40 mg IV Q 12 hrs. I will also order a respiratory home walk test since the patient had some episodes of oxygen desaturation on ambulation. 04/18 DC IV Solumedrol and start steroid taper. Patient failed walk test - needs home oxygen. Acute kidney injury on chronic kidney disease stage 4 Hypokalemia - resolved -Nephrology consulted. Patient creatinine is 1.88. -AMER[place] on hold, potassium replaced orally. Continue to monitor BMP -Continue to monitor strict I's and O's, avoid nephrotoxins, monitor fluid status. -Creatinine down to baseline. 04/[address] Salmeron - Patient cleared for Dc on po lasix. Diarrhea, acute, with recent antibiotic use -Check c diff - pending HTN, chronic, currently stable -Hold AMERICO inhibitor - BP stable. DM, chronic -Accu checks AC/HS with SSI. - Blood sugars with better control on medium Novolog sliding scale. Subtherapeutic INR -Metallic mitral valve replacementon chronic anticoagulation with Coumadin. Currently subtherapeutic INR - 1.7 -Continue heparin drip - goal INR 2.5 to 3.5 due to Metallic Mitral valve - discussed w RN to resume heparin gtt since INR dropped from 2.4 to 2.2. Consult pharmacy to help with dosing. - 04/19 INR 3 - Dc heparin Chest pain -Resolved. She states she had a stress test with Dr. Mireles last year which was reportedly negative. Patient had an EKG overnight which shows sinus tachycardia with right axis deviation and right ventricular hypertrophy. No ST- T changes suggestive of active ischemia. Etiology following. Cardiac enzymes is stable at 0.05 and 0.06 last night. Follow-up outpatient with Dr. Mireles was discharged. DVT prophylaxis: heparin gtt Discharge Planning Dc home in am once o2 is arranged. Problem Qualifiers (1) CHF exacerbation: Qualified Code: I50.9 - Acute on chronic congestive heart failure, unspecified congestive heart failure type (2) Chronic kidney disease: Qualified Code: N18.4 - Stage 4 chronic kidney disease (3) Diabetes: Qualified Code: E11.9 - Type 2 diabetes mellitus without complication, without long-term current use of insulin (4) Diarrhea: Qualified Code: A09 - Diarrhea of presumed infectious origin Breezy Lema MD Apr 19, 2017 01:00
[2017-04-19] MEDS ORDERED: AUGM500T7 PO (01:15)
[2017-04-19] MEDS ORDERED: PRED20 PO (01:15)
--- NOTE | 2017-04-19 01:17 | HHI.DCPOC ---
Discharge Care Plan Diagnosis: (1) Atrial fibrillation (2) Anemia (3) SOB (shortness of breath) (4) CHF (congestive heart failure) (5) Anemia in CKD (chronic kidney disease) (6) Diarrhea (7) Chest pain (8) Subtherapeutic international normalized ratio (INR) (9) COPD exacerbation Goals to Promote Your Health * To prevent worsening of your condition and complications * To maintain your health at the optimal level Directions to Meet Your Goals Take your medications as prescribed Follow your dietary instruction Follow activity as directed Keep your appointments as scheduled Take your immunizations and boosters as scheduled If your symptoms worsen call your PCP, if no PCP go to Urgent Care Center or Emergency Room Smoking is Dangerous to Your Health. Avoid second hand smoke Call the 24-hour hour crisis hotline for domestic abuse at Breezy Lema MD Apr 19, 2017 01:16
--- NOTE | 2017-04-19 01:28 | HHI.DS ---
Discharge Summary Admission Date Apr 14, 2017 at 20:45 Discharge Date: Apr 19, 2017 Admitting Diagnosis CHF Exacerbation (1) CHF exacerbation ICD Code: I50.9 (2) Chronic kidney disease ICD Code: N18.9 (3) Diabetes ICD Code: E11.9 (4) Hypertension ICD Code: I10 (5) Diarrhea ICD Code: R19.7 (6) Subtherapeutic international normalized ratio (INR) ICD Code: R79.1 (7) Chest pain ICD Code: R07.9 Procedures none Brief History - From Admission Written by RONALDO Terrell acting as scribe for [Jeff] on 04/15/17 at 00: 50. 71 y/o female with a medical history of CHF, HTN, DM, afib, MVR([facility]), pituitary tumor and CKD stage 4 presented to the ED with complaints of increased sob and lower extremity edema . Patient states she went to her PCP today because she has a routine appointment. But she was also having sob, and lower extremity edema for past few days. At the office, her blood pressure was low and according to the notes, she was found to be in A. fib with RVR. Her PCP therefore sent her to the hospital. 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 She states over the last week she has had increasing sob and lower extremity edema. She has cellulitis in her abdomen and has been on antibiotics with amoxicillin.. She is complaining of diarrhea, 2-3 times a day, foul smelling. Denies any chest pain, fever, chills, dysuria. Apart from the above, patient denies any chest pain/palpitations/syncopal episodes. She denies nausea/vomiting. Varnish Mixer: Dr. Mireles Proofreader: Dr. Interiano CBC/BMP: 04/18/17 0747 04/17/17 0239 Significant Findings Laboratory Tests Test 04/16/17 04/16/17 04/17/17 04/18/17 03:47 16:30 02:39 01:40 Red Blood Count 3.46 MIL/MM3 (4.00-5.30) Hemoglobin 9.3 GM/DL (11.6-15.3) Hematocrit 29.2 % (35.0-46.0) Mean Corpuscular Hemoglobin 26.8 PG (27.0-34.0) Mean Corpuscular Hemoglobin 31.8 % Concent (32.0-36.0) Red Cell Distribution Width 19.8 % (11.6-17.2) Platelet Count 144 TH/MM3 (150-450) Monocytes (%) (Auto) 12.0 % (0.0-8.0) Eosinophils (%) (Auto) 5.8 % (0.0-4.0) Lymphocytes # (Auto) 0.8 TH/MM3 (1.0-4.8) Activated Partial 113.0 SEC 136.1 SEC 75.9 SEC Thromboplast Time (24.3-30.1) (24.3-30.1) (24.3-30.1) Carbon Dioxide Level 35.1 MEQ/L 34.4 MEQ/L (21.0-32.0) (21.0-32.0) Anion Gap 4 MEQ/L (5-15) Blood Urea Nitrogen 30 MG/DL (7-18) 23 MG/DL (7-18) Creatinine 1.84 MG/DL 1.72 MG/DL (0.50-1.00) (0.50-1.00) Estimat Glomerular Filtration 33 ML/MIN (>89) 35 ML/MIN (>89) Rate Iron Level 33 MCG/DL (50-170) Total Iron Binding Capacity 514 MCG/DL (250-450) Percent Iron Saturation 6.4 % (20-50) Albumin 3.3 GM/DL 3.3 GM/DL (3.4-5.0) (3.4-5.0) Prothrombin Time 27.4 SEC 24.8 SEC 35.4 SEC (9.8-11.6) (9.8-11.6) (9.8-11.6) Chloride Level 96 MEQ/L (98-107) Random Glucose 179 MG/DL (74-106) Phosphorus Level 1.8 MG/DL (2.5-4.9) Troponin I 0.06 NG/ML (0.02-0.05) Test 04/18/17 07:47 White Blood Count 14.2 TH/MM3 (4.0-11.0) Red Blood Count 3.61 MIL/MM3 (4.00-5.30) Hemoglobin 9.7 GM/DL (11.6-15.3) Hematocrit 30.4 % (35.0-46.0) Mean Corpuscular Hemoglobin 26.9 PG (27.0-34.0) Red Cell Distribution Width 20.0 % (11.6-17.2) Platelet Count 136 TH/MM3 (150-450) PE at Discharge AAOx3 S1S2 irregularly irregular Clear lungs BL and decreased breath sounds on exam no edema in lower extremities. Pt Condition on Discharge: Stable Discharge Disposition: Discharge Home Discharge Time: > 30 minutes Discharge Instructions DIET: Follow Instructions for: Heart Healthy Diet Activities you can perform: Regular-No Restrictions Activities to Avoid: Strenuous Activity Breezy Lema MD Apr 19, 2017 01:28
[2017-04-19] MEDS: PANTOPRAZOLE SODIUM 40 MG VIAL IV PUSH SCH (01:43)
[2017-04-19 04:30] LABS: BACTERIA, URINE RARE /hpf; BLOOD, URINE MOD (NEG); COMMENT (UR) CULT NOT INDICATED; CULTURE IF INDICATED CULT NOT INDICATED; GLUCOSE,URINE NEG (NEG); KETONE, URINE NEG (NEG); MUCUS URINE FEW /lpf (OCC); NITRITE,URINE NEG (NEG); SQUAMOUS EPITHELIAL CELL URINE <1 /hpf (0-5); URINE COLOR YELLOW (YELLW/STRAW)
[2017-04-19 04:40] VITALS: BP 106/63; PULSE 69; RESP 21; TEMP 96.1; O2SAT 96
[2017-04-19] MEDS: BETHANECHOL CHL 25 MG TAB PO SCH ×3 (05:50→15:30)
[2017-04-19] MEDS: INSULIN ASPART SUPPLEMENTAL SCALE SQ SCH ×3 (07:00→16:08)
[2017-04-19 08:00] VITALS: BP 126/54; PULSE 66; RESP 18; TEMP 97.6; O2SAT 96
[2017-04-19] MEDS: ALLOPURINOL 100 MG TAB PO SCH (08:47)
[2017-04-19] MEDS: AMOXICILLIN (TRIHYDRATE) 250 MG CAP PO SCH (08:47)
[2017-04-19] MEDS: LISINOPRIL 5 MG TAB PO SCH (08:48)
[2017-04-19] MEDS: SODIUM CHLORIDE 0.9% FLUSH 10 ML FLUSH IV FLUSH SCH (08:48)
[2017-04-19] MEDS: GABAPENTIN 100 MG CAP PO SCH ×2 (08:48→13:06)
[2017-04-19] MEDS ORDERED: predniSONE 20 MG TAB PO SCH (09:00)
[2017-04-19] MEDS ORDERED: FUROSEMIDE 40 MG TAB PO SCH (09:00)
[2017-04-19 09:32] LABS: INTERNATIONAL NORMALIZED RATIO 2.6 RATIO; PROTHROMBIN TIME - PATIENT 29.7 SEC (9.8-11.6)
[2017-04-19] MEDS ORDERED: OXYGENDME NAS.CANULA (09:48)
[2017-04-19 12:00] VITALS: BP 141/79; PULSE 66; RESP 20; TEMP 96.6; O2SAT 100
[2017-04-19 16:00] VITALS: BP 147/69; PULSE 66; RESP 20; TEMP 97.2; O2SAT 96
[2017-04-19] MEDS ORDERED: WARFARIN SOD 2 MG TAB PO SCH (16:00)
== END 2017-04-19 17:27 | disposition home or self-care (01) | DRG 190 ==
LOC: NEPE 13:46 → OBSVTOIN 20:45 → NEDA 20:45 → N06B 04-15 00:09
PROVIDERS: ADMIT Hospitalist; ATTEND Hospitalist
DX: J44.1 Chronic obstructive pulmonary disease with (acute) exacerbation (principal); I50.33 Acute on chronic diastolic (congestive) heart failure; N18.4 Chronic kidney disease, stage 4 (severe); N17.9 Acute kidney failure, unspecified; E11.22 Type 2 diabetes mellitus with diabetic chronic kidney disease; I48.2 Chronic atrial fibrillation; L03.311 Cellulitis of abdominal wall; A09 Infectious gastroenteritis and colitis, unspecified; I13.0 Hypertensive heart and chronic kidney disease with heart failure and stage 1 through stage 4 chronic kidney disease, or unspecified chronic kidney disease; D63.1 Anemia in chronic kidney disease; E78.00 Pure hypercholesterolemia, unspecified; E87.6 Hypokalemia; I34.1 Nonrheumatic mitral (valve) prolapse; M10.9 Gout, unspecified; T38.0X5A Adverse effect of glucocorticoids and synthetic analogues, initial encounter; Z79.01 Long term (current) use of anticoagulants; Z86.73 Personal history of transient ischemic attack (TIA), and cerebral infarction without residual deficits; Z87.891 Personal history of nicotine dependence; Z95.2 Presence of prosthetic heart valve; Z96.643 Presence of artificial hip joint, bilateral
CPT/HCPCS: 71020; 76937; 80048; 80069; 81001; 82550; 82552; 82948; 83540; 83550; 83735; 83880; 84484; 85025; 85027; 85610; 85730; 93005; 93306; 94620; C9113; J1644; J1756; J1815; J1940; J2920; J7512